=== PATIENT | female | born 1975 | race Caucasian/White ===

== ENCOUNTER → 2023-04-15 09:18 | Outpatient (CLI) | payer BC, SELFPAY ==
--- NOTE | ~2023-04-15 | XR_ITS ---
Cervical Spine: AP, lateral, open-mouth views Clinical History: Pain Findings: There is mild reversal of the normal cervical lordosis. The vertebral bodies and posterior elements appear intact. There is right-sided facet arthropathy at C3-C4. The intervertebral disc spa rigo are well maintained. Pre-vertebral soft tissues are unremarkable. Impression: Mild reversal of the normal cervical lordosis. Right-sided facet arthropathy at C3-C4. Reviewed, dictated and finalized at [facility]. Impression: Mild reversal of the normal cervical lordosis. Right-sided facet arthropathy at C3-C4.
--- NOTE | ~2023-04-15 | XR_ITS ---
Lumbosacral Spine: AP and lateral views Clinical History: Pain Findings: The normal lordotic curve is maintained. The vertebral bodies and posterior elements are i ntact. There is mild to moderate degenerative disc change at L4-L5 and L5-S1.. There is moderate face t arthropathy throughout the lumbar spine. The sacroiliac joints are normally outlined. Impression: Cphr-ky-onadufnd degenerative spondylosis, as above. Reviewed, dictated and finalized at location [facility]. Impression: [id number]-npiwprxp degenerative spondylosis, as above.
== END ==
PROVIDERS: PCP Internal Medicine; Visit Provider Nurse Practitioner Family
DX: M54.2 Cervicalgia (principal); M54.59 Other low back pain; M43.06 Spondylolysis, lumbar region; M53.82 Other specified dorsopathies, cervical region
CPT/HCPCS: 72040; 72100

== ENCOUNTER 2024-10-24 14:15 | Outpatient (CLI) | payer BC, SELFPAY ==
[2024-10-24 15:17] LABS: Influenza A QL RT-PCR Negative (Negative); Influenza B QL RT-PCR Negative (Negative); RSV RNA, RT-PCR Negative (Negative)
--- OUTSIDE RECORDS SUMMARY | 2024-10-24 16:41 | XMS_ITS | Clinical Summary ---
Author Organization [facility] Address [address] [place] [id number] Care Team Providers Care Manager Of Employee Relations Name Role Phone Neto Durant MD Unavailable Ramon Taylor MD Primary Care Provider Yefri Spence MD Unavailable [phone] Francesca Kendall Unavailable Unavailable Allergies No known active allergies Medications ALPRAZolam (XANAX) 0.5 mg tablet Take 1 tablet (0.5 mg total) by mouth 3 (three) times a day 10/12/2020 Active aspirin 81 mg enteric coated tabletIndicatio ns:cardiovascul ar disease Take 1 tablet (81 mg total) by mouth daily 30 tablet 11 12/07/2020 Active sacubitriL-vals eugenia (ENTRESTO) 24-26 mg tabletIndicatio ns:chronic heart failure Take 1 tablet by mouth 2 (two) times a day 60 tablet 01/03/2021 Active spironolactone (ALDACTONE) 25 mg tablet Take 1 tablet (25 mg total) by mouth daily 30 tablet 11 01/04/2021 Active dapagliflozin (FARXIGA) 10 mg tabletIndicatio ns:heart failure with reduced ejection fraction Take 1 tablet (10 mg total) by mouth daily 30 tablet 01/04/2021 Active carvediloL (COREG) 12.5 mg tablet Take 1 tablet (12.5 mg total) by mouth 2 (two) times a day 10/28/2023 Active clopidogreL (PLAVIX) 75 mg tablet Take 1 tablet (75 mg total) by mouth daily Active furosemide (LASIX) 40 mg tablet Take 1 tablet (40 mg total) by mouth daily as needed 12/09/2023 Active rosuvastatin (CRESTOR) 10 mg tablet Take 1 tablet (10 mg total) by mouth nightly Active Active Problems Problem Noted Date Diagnosed Date SOB (shortness of breath) 12/10/2023 Chest pain, unspecified type 03/16/2023 Chest pain 01/01/2021 [facility] (myocardial infarction) 12/04/2020 Coronary artery disease 11/26/2020 Overview (11/26/2020): Added automatically from request for surgery [id number] Mixed anxiety depressive disorder 05/19/2012 Overview (11/21/2016): Depression with anxiety History of migraine headaches 05/19/2012 Overview (11/21/2016): History of migraine headaches Patent foramen ovale 05/19/2012 Overview (11/21/2016): PFO with atrial septal aneurysm Tobacco dependence in remission 05/19/2012 Overview (11/21/2016): Tobacco abuse, in remission Abscess of vulva 03/02/2012 Surgical History Surgery Date Site/Laterality Comments HYSTERECTOMY TONSILLECTOMY NOSE SURGERY CHOLECYSTECTOMY CARDIAC CATHETERIZATION Medical History Medical History Date Comments Hx Other Medical Depression, wit h Anxiety Hx Other Medical Migraines Personal history of other sp ecified conditions History of headache - (Added by TW Conv) Gastric ulcer without hemorr jimmie or perforation Gastric ulcer - (Added by TW Conv) Personal history of other di seases of the digestive system History of esophageal reflux - (Added by TW Conv) Arrhythmia Wheezing Cervical cancer (HCC) Social History Tobacco Use Types Packs/Day Years Used Date Smoking Tobacco: Heavy Smoker Cigarettes 0 0.5 Tobacco Cessation:Ready to Q uit: No; Counseling Given: Yes Alcohol Use Standard Drinks/Week Comments Not Currently 0 (1 standard drink = 0.6 oz pur e alcohol) Social Connection and Isolat ion Panel [NHANES] Answer Date Recorded In a typical week, how many times do you talk on the phone with family, friends, or neighbors? More than three times a week 03/17/2023 How often do you get togethe r with friends or relatives? More than three times a week 03/17/2023 How often do you attend chur ch or christianity services? Never 03/17/2023 Do you belong to any clubs o r organizations such as druze groups, unions, fraternal or athletic groups, or school groups? No 03/17/2023 How often do you attend meet ings of the clubs or organizations you belong to? Never 03/17/2023 Are you , , di vorced, , never , or living with a partner? 03/17/2023 AUDIT-C Answer Date Recorded Q1: How often do you have a drink containing alc ohol? Never 12/15/2023 Average Number of Drinks Not on file 024 Frequency of Binge Drinking Not on file 11/17 Overall Financial Resource Strain (CARDIA) Answe r Date Recorded How hard is it for you to pa y for the very basics like food, housing, medical care, and heating? Not hard at all 03/17/2023 Hunger Vital Sign Answer Date Recorded Within the past 12 months, y ou worried that your food would run out before you got the money to buy more. Never true 03/17/20 23 Within the past 12 months, t he food you bought just didn't last and you didn't have money to get more. Never true 03/17/2023 PRAPARE - Transportation Answer Date Re corded In the past 12 months, has l ack of transportation kept you from medical appointments or from getting medications? No 08/2022 In the past 12 months, has l ack of transportation kept you from meetings, work, or from getting things needed for daily living? No 03/17/2023 Housing Stability Vital Sign Answer Trevon e Recorded In the last 12 months, was t here a time when you were not able to pay the mortgage or rent on time? No 03/17/2023 In the last 12 months, how many places have you lived? 1 03/17/2023 In the last 12 months, was t here a time when you did not have a steady place to sleep or slept in a detention (including now)? No 03/17/2023 Personal Safety Answer Date Recorded Have you ever been in or are you currently in a harmful physical or emotional relationship or is someone making you feel afraid or unsafe? Denies 12/15/2023 Comments No Sex and Gender Information Value Date Recorded Sex Assigned at Not on file Legal Sex Female 2:34 AM HOUSE PRINCIPAL Gender Identity Not on file Sexual Orientation Not on file Obstetrics History Last Filed Vital Signs Vital Sign Reading Time Taken Comments Blood Pressure 107/79 12/15/2023 6:35 PM CDT Pulse 85 12/15/2023 6:35 PM CDT Temperature 36.6 C (97.8 F) 12/15/2023 6:00 PM CDT Respiratory Rate 15 12/15/2023 6:35 PM CDT Oxygen Saturation 99% 12/15/2023 6:35 PM CDT Inhaled Oxygen Concentration - - Weight 93.7 kg (206 lb 8 oz) 12/15/2023 11:28 AM CDT Height 163.8 cm (5' 4.5 ) 12/15/2023 11:28 AM CD T Body Mass Index 34.9 12/15/2023 11:28 AM CDT Plan of Treatment Health Maintenance Due Date Last Done Comments Breast Cancer Screening-Mammogram 1975 Colon Cancer Screening-Colonoscopy 1975 Depression Screening 1975 Hepatitis C Screening 1975 DTaP/Tdap/Td Vaccine (1 - Tdap) 10/23/1986 Hepatitis B Screening 10/23/1993 Regular Well Visit/Exam 18-64 10/23/1993 Pneumococcal vaccine <65 (1 of 2 - PCV) 10/23/1994 Covid-19 Vaccine (3 - 2023- season) 2024, 02/22/2021 Influenza Vaccine (#1) 2024 Medical Devices Implanted Type Area Integrated Marketing Specialist Device Identifier Shelf Expiration Date Model / Serial / Lot [employer] X [id number] Resolute [place] 3mm 2.1-2.7fr 34mm 140cm Rapid Exchange Radiopaque - [id number] Implanted:Qty: 1 on 11/30/2020 by Neto Durant MD at [facility] Med[employer]onic Inc [id number] X / / Medtronic U[employer] X [id number] Resolute [place] 3.5mm 2.1-2.7fr 22mm 140cm Rapid Exchange - [id number] Implanted:Qty: 1 on 11/30/2020 by Neto Durant MD at [facility] [employer]onic Inc [id number] / / Medtronic U[employer] X [id number] Resolute [place] 3.5mm 2.1-2.7fr 12mm 140cm Rapid Exchange - [id number] Implanted:Qty: 1 on 11/30/2020 by Neto Durant MD at [facility] [employer]onic Inc [id number] X / / Medtronic U[employer] X [id number] Resolute [place] 4mm 2.1-2.7fr 15mm 140cm Rapid Exchange Radiopaque - [id number] Implanted:Qty: 1 on 12/04/2020 by Neto Druant MD at [facility] [employer] Inc [id number] X / / Insurance [employer] [facility] [employer] [place] [facility] Advance Directives For more information, please contact: [phone] * Full Code (Latest Code Status on File) Date Activated Date Inactivated Comments 03/17/2023 4:28 AM 03/18/2023 3:23 PM * Full Code Date Activated Date Inactivated Comments 01/01/2021 8:55 PM 01/03/2021 2:34 PM * Full Code Date Activated Date Inactivated Comments 12/04/2020 12:36 PM 12/06/2020 3:46 PM * Full Code Date Activated Date Inactivated Comments 12/04/2020 10:28 AM 12/04/2020 12:36 PM * Full Code Date Activated Date Inactivated Comments 11/30/2020 3:12 PM 12/01/2020 5:09 PM Care Teams Manager Of Employee Relations Relationship Specialty Start Date End Date Ramon Taylor MD [address] [facility] [address] [place] [address] PCP - General 01/01/21 Neto Durant MD [address] [place] [address] Consulting Physician Cardiovascular Disease 12/01/20 Yefri Spence MD [address] [place] [address] Consulting Physician Transplant 06/17/24 Francesca eKndall Primary Manager Terminal 06/17/24
--- OUTSIDE RECORDS SUMMARY | 2024-10-24 16:41 | XMS_ITS | Patient Health Summary ---
Author Organization [facility] Address [address] [place] [place] [address] Care Team Providers Care Knot Cutter Name Role Phone Unavailable Primary Care Provider Unavailabl e Note from [facility],non-owned Affiliates and Associated Physician Practices is amultiple site organization consisting of ambulatory clinics and hospital sitesin [place], [place], [place] and [place]. This disclosure is being madepursuant to the Care Everywhere program and may not contain all information available regarding this patient. Last updated 18.[facility] Allergies No known active allergies Social History Tobacco Use Types Packs/Day Years Used Date Smoking Tobacco: Never Assessed Sex and Gender Information Value Date Recorded Sex Assigned at Not on file Gender Identity Not on file Sexual Orientation Not on file Last Filed Vital Signs Vital Sign Reading Time Taken Comments Blood Pressure 121/87 12/05/2014 12:36 PM CDT Pulse 96 12/05/2014 12:36 PM CDT Temperature - - Respiratory Rate 17 12/05/2014 12:36 PM CDT Oxygen Saturation - - Inhaled Oxygen Concentration - - Weight 84.4 kg (186 lb) 12/05/2014 12:36 PM CDT Height 152.4 cm (5') 12/05/2014 12:36 PM CDT Body Mass Index 36.33 12/05/2014 12:36 PM CDT Procedures * SKIN TEST PPD - POINT OF CARE(Performed 01/12/2018) Performed for PPD screening test Results * SKIN TEST PPD - POINT OF CARE (01/12/2018) PPD 0 mm Other MISCELLANEOUS SAMPLE S / Unknown 01/12/2018 Swathi Basilio APRN-SUPERVISOR [facility] - POINT OF CARE ORDERABLES
--- OUTSIDE RECORDS SUMMARY | 2024-10-24 16:41 | XMS_ITS | Clinical Summary ---
Author Organization [facility] Address [address] [place] [id number] Phone Care Team Providers Care Senior Clinical Research Scientist Name Role Phone Ramon Taylor MD Primary Care Provider [phone] Allergies No known active allergies Medications clopidogreL (PLAVIX) 75 mg Tablet Take 75 mg by mouth daily. Active dapagliflozin propanediol (Farxiga) 10 mg Tablet Take 10 mg by mouth daily. Active spironolactone (ALDACTONE) 25 mg tablet Take 25 mg by mouth daily. Active carvediloL (COREG) 12.5 mg tablet Take 12.5 mg by mouth 2 times daily with meals. Active ALPRAZolam (XANAX) 0.5 mg tablet Take 0.5 mg by mouth 3 times daily as needed for Anxiety. Active sacubitriL-valsa rtan (ENTRESTO) 49-51 mg Tablet Take 1 Tablet by mouth 2 times daily. Active HYDROcodone-acet aminophen (NORCO) 5-325 mg tablet Take 1 Tablet by mouth 3 times daily. Active aspirin (ECOTRIN EC) 81 mg Tablet, Delayed Release (E.C.) Take 81 mg by mouth daily. Active rosuvastatin (CRESTOR) 20 mg tablet Take 1 Tablet (20 mg) by mouth daily. 30 Tablet 03/22/2023 Active Active Problems Problem Noted Date Diagnosed Date Elevated brain natriuretic peptide (BNP) level 0 03/21/2023 Ischemic dilated cardiomyopathy 03/20/2023 Acute on chronic HFrEF (hear t failure with reduced ejection fraction) 03/20/2023 Gastroesophageal reflux disease 03/19/2023 Chest pain 03/19/2023 [place] (acute kidney injury) 03/19/2023 Anginal equivalent 03/19/2023 DE (myocardial infarction) 12/04/2020 Arteriosclerosis of coronary artery 11/26/2020 Overview (03/19/2023): Added automatically from request for surgery [id number] Cardiomyopathy 12/29/2018 Chronic pain disorder 06/29/2018 Mixed anxiety depressive disorder 05/19/2012 Overview (03/19/2023): Depression with anxiety Social History Tobacco Use Types Packs/Day Years Used Date Smoking Tobacco: Never Tobacco Cessation:Counseling Given: Not Answered Feeling Safe Answer Date Recorded Are you in a relationship wi th someone who hurts you emotionally and/or physically? No 03/19/2023 Food Insecurity Answer Date Recorded Social/Environmental Concerns No concerns Transportation Needs Answer Date Record ed Social/Environmental Concerns No concerns Housing Stability Answer Date Recorded Social/Environmental Concerns No concerns Utility Needs Answer Date Recorded Social/Environmental Concerns No concerns Comments Unknown Sex and Gender Information Value Date Recorded Sex Assigned at Not on file Legal Sex Female 1:37 PM CDT Gender Identity Not on file Sexual Orientation Not on file Last Filed Vital Signs Vital Sign Reading Time Taken Comments Blood Pressure 129/94 03/21/2023 10:31 AM CDT Pulse 77 03/21/2023 3:56 AM CDT Temperature 36.8 C (98.2 F) 03/21/2023 10:31 AM CDT Respiratory Rate 16 03/21/2023 10:31 AM CDT Oxygen Saturation 91% 03/21/2023 3:56 AM CDT Inhaled Oxygen Concentration - - Weight 95.7 kg (211 lb) 03/20/2023 4:36 AM CDT Height 165.1 cm (5' 5 ) 03/19/2023 8:09 PM CDT Body Mass Index 35.11 03/19/2023 8:09 PM CDT Plan of Treatment Health Maintenance Due Date Last Done Comments PNEUMOCOCCAL VACCINE 0-49 YEARS (1 of 2 - PCV) 982 DTAP/TDAP/TD VACCINES (1 - Tdap) 10/23/1994 HEPATITIS B VACCINES (1 of 3 - 19+ 3-dose series) 04/1995 CERVICAL CANCER SCREENING 10/23/2005 BREAST CANCER SCREENING 2015 COLORECTAL SCREENING 10/23/2020 Colorectal Cancer Screening 10/23/2020 FIT-DNA Q 3 years 10/23/2020 FIT/FOBT Q 1 year 10/23/2020 Flex Sig/CT Colonography Q 5 years 10/23/2020 INFLUENZA VACCINE (#1) 2024 Insurance [facility] Advance Directives For more information, please contact: [phone] * Full Code (Latest Code Status on File) Date Activated Date Inactivated Comments 03/19/2023 9:24 PM 03/21/2023 5:59 PM Care Teams Senior Clinical Research Scientist Relationship Specialty Start Date End Date Ramon Taylor MD [address] [facility] [address] [place] [id number] PCP - General Internal Medicine 03/19/23
--- OUTSIDE RECORDS SUMMARY | 2024-10-24 16:41 | XMS_ITS | Referral Summary ---
Author Organization [facility] Address [address] [place] [id number] Care Team Providers Care Metal Furrer Name Role Phone Neto Durant MD Unavailable Ramon Taylor MD Primary Care Provider Yefri Spence MD Unavailable [phone] Francesca Kendall Unavailable Unavailable Allergies No known [...] (11/26/2020): Added automatically from request for surgery [id number] Mixed anxiety depressive disorder 05/19/2012 Overview (11/21/2016): Depression with anxiety History of migraine headaches 05/19/2012 Overview (11/21/2016): History of migraine headaches Patent foramen ovale 05/19/2012 Overview (11/21/2016): PFO with atrial septal aneurysm Tobacco dependence in remission 05/19/2012 Overview (11/21/2016): Tobacco abuse, in remission Abscess of vulva 03/02/2012 Social History Tobacco Use Types Packs/Day Years [...] often do you attend chur ch or taoism services? Never 03/17/2023 Do you belong to any clubs o r organizations such as synagogue groups, unions, fraternal or athletic groups, or [...] place to sleep or slept in a skilled nursing (including now)? No 03/17/2023 Personal Safety Answer Date Recorded Have you ever been in or are you currently in a harmful physical or emotional relationship or is someone making you feel afraid or unsafe? Denies 12/15/2023 Comments No Sex and Gender Information Value Date Recorded Sex Assigned at Not on file Legal Sex Female 2:34 AM COMPUTER PROGRAMMING MANAGER Gender Identity Not on file Sexual Orientation [...] 12/15/2023 11:28 AM CDT Plan of Treatment Not on file Medical Devices Implanted Type Area Diorama Model Maker Device Identifier Shelf Expiration Date Model / Serial / Lot Medtronic Usa [employer] X [id number] Resolute [employer] 3mm 2.1-2.7fr 34mm 140cm Rapid Exchange Radiopaque - [id number] Implanted:Qty: 1 on 11/30/2020 by Neto Durant MD at [facility] [employer]onic Inc [id number] X / / Med[employer]onic [employer] X [id number] Resolute [employer] 3.5mm 2.1-2.7fr 22mm 140cm Rapid Exchange - [id number] Implanted:Qty: 1 on 11/30/2020 by Neto Durant MD at [facility] [employer]onic Inc [id number] X / / Med[employer]onic [employer] X [id number] Resolute [place] 3.5mm 2.1-2.7fr 12mm 140cm Rapid Exchange - [id number] Implanted:Qty: 1 on 11/30/2020 by Neto Durant MD at [facility] Med[employer]onic Inc [id number] X / / Medtronic Usa [employer] X [id number] Resolute [employer] 4mm 2.1-2.7fr 15mm 140cm Rapid Exchange Radiopaque - [id number] Implanted:Qty: 1 on 12/04/2020 by Neto Durant MD at [facility] [employer] Inc [id number] X / / Insurance [employer] [place] [employer] [place] Advance Directives For more information, please contact: [phone] * Full Code (Latest Code Status on [...] 3:12 PM 12/01/2020 5:09 PM Care Teams Metal Furrer Relationship Specialty Start Date End Date Ramon Taylor MD [address] [facility] [address] [place] [address] PCP - General 01/01/21 Neto Durant MD [address] [place] [address] Consulting Physician Cardiovascular Disease 12/01/20 Yefri Spence MD [address] [facility] [address] [facility] [place] [address] Consulting Physician Transplant 06/17/24 Francesca Kendall Primary Aix System Administrator 06/17/24
--- OUTSIDE RECORDS SUMMARY | 2024-10-24 16:42 | XMS_ITS | CONTINUITY OF CARE DOCUMENT ---
Author Name deven carvalho Address Unknown Organization [facility] Address [address] [place] [address] Phone [phone] Care Team Providers Care Herd Tester Name Role Phone Carleen DEWEY, Neto Unavailable [phone] [facility] SPENCE MD Unavailable TASH FLYNN MD Unavailable PROBLEMS Condition Status Date Provider Notes S/P DC AICD - Biotronik ( MRI Safe) active Sarah Foss Hyperlipidemia active Umer Flores MD Edema active Karin Pily Chest pain completed - Umer Flores MD ? Cardiomyopathy completed - Umer Flores MD COPD; active Umer Flores MD has lung md Anxiety disorder, generalized active Umer Flores MD Atrial septal aneurysm completed 3 - Neto Durant MD SLEEP APNEA; active Umer Flores MD Cardiomyopathy EF 30% active Neto Dempsey PVC's active Neto Durant MD Palpitations active Neto Durant MD CHF active Neto Durant MD MURAL THROMBUS, LEFT VENTRICLE active Neto Durant MD Hypokalemia active Neto Durant MD Dizziness active Neto Durant MD CAD s/p stents to LAD active Neto Dempsey Exposure to SARS-associated coronavirus;NEG SWAB completed - Neto Durant MD IRON DEFICIENCY active Umer Flores MD Diastolic dysfunction completed - Neto Durant MD PREDIABETES; completed - Neto Durant MD Vitamin D deficiency completed - Neto Durant MD Folate-deficiency completed - Neto Durant MD Obesity completed - Neto Durant MD Chest pain, atypical completed - Neto Durant MD Headache, chronic completed - Neto Durant MD Health maintenance examination completed - Neto Durant MD B12 deficiency completed - Neto Durant MD Hypokalemia completed - Neto Durant MD Depression completed - Neto Durant MD Pneumonia completed - Neto Durant MD FAMILY HISTORY OF HEART DISEASE active Umer Flores MD FATHER HAD CABG Sinus tachycardia;nml tsh completed 09/08 - Neto Durant MD Tobacco use, quit active Umer Flores MD Dyspnea completed - Umer Flores MD ENCOUNTERS Date Type Provider Location Encounter Diag nosis - In-person encounter Office Visit Neto Durant MD [facility] - In-person encounter Office Visit Neto Durant MD [facility] - In-person encounter Office Visit Neto Durant MD [facility] - In-person encounter Office Visit Neto Durant MD [facility] MURAL THROMBUS, LEFT VENTRICLE - In-person encounter Office Visit Neto Durant MD [facility] - In-person encounter Office Visit Neto Durant MD [facility] Hypokalemia - In-person encounter Office Visit Neto Durant MD [facility] Dizziness - In-person encounter Office Visit Neto Durant MD [facility] - In-person encounter Office Visit Neto Durant MD [facility] CHF - In-person encounter Office Visit Neto Durant MD [facility] - In-person encounter Office Visit Neto Durant MD [facility] - In-person encounter Office Visit Neto Durant MD [facility] Exposure to SARS-associated coronavirus;NEG SWAB - In-person encounter Office Visit Neto Durant MD [facility] - In-person encounter Office Visit Benedicto Hill MD [facility] - In-person encounter Office Visit Neto Durant MD [facility] - In-person encounter Office Visit Neto Durant MD [facility] Palpitations - In-person encounter Office Visit Thomas Looney MD [facility] - In-person encounter Office Visit Neto Durant MD [facility] CAD s/p stents to LAD - In-person encounter Office Visit Neto Durant MD [facility] Sinus tachycardia;nml tshPneumoniaDepressionH [id number] deficiencyHealth maintenance examinationHeadache, chronicChest pain, atypicalAtrial septal aneurysmObesityFolate-d eficiencyVitamin D deficiencyPREDIABETES;D iastolic dysfunctionCardiomyopat hy EF 30%PVC's - In-person encounter Office Visit Umer Flores MD [facility] ? CardiomyopathyCOPD;SLEE P APNEA;IRON DEFICIENCY - In-person encounter Office Visit Umer Flores MD [facility] DyspneaTobacco use, quitChest painSinus tachycardia;nml tshFAMILY HISTORY OF HEART DISEASECOPD;Anxiety disorder, generalizedSLEEP APNEA; VITAL SIGNS Date Observation Value Provider Body Mass Index (Ratio) 35.82 kg/m2 Alicia Durant MD blood pressure, diastolic 76 mm[Hg] [facility], systolic 114 mm[Hg] [facility] oxygen saturation, oximetry 97 % Rae Anne pulse rate 89 /min [facility] respiratory rate E&M 14 /min [facility] weight E&M 212 [lb_av] Raeanna Anne height E&M 64.5 [in_i] [facility] blood pressure, cuff size regular [facility] Body Mass Index (Ratio) 35.35 kg/m2 Alicia Durant MD oxygen saturation, oximetry 97 % [facility] pulse rate 77 /min [facility] blood pressure, diastolic 74 mm[Hg] Amina Gomez blood pressure, systolic 107 mm[Hg] Flaca sherman Gomez respiratory rate E&M 20 /min [facility] blood pressure, cuff size regular Amina anaya Gomez weight E&M 209.2 [lb_av] Chanelle Ruiz height E&M 64.5 [in_i] [facility] Body Mass Index (Ratio) 35.32 kg/m2 Alicia Durant MD blood pressure, cuff size regular Lang harp Pérez blood pressure, diastolic 79 mm[Hg] Lang odonnellha Pérez blood pressure, systolic 103 mm[Hg] Tab kaylaha Pérez oxygen saturation, oximetry 97 % Lenore Pérez pulse rate 99 /min Lenore Pérez weight E&M 209 [lb_av] Lenore Pérez height E&M 64.5 [in_i] Lenore Pérez respiratory rate E&M 12 /min Lenore Pérez Body Mass Index (Ratio) 34.78 kg/m2 Alicia Durant MD blood pressure, cuff size regular Lang harp Pérez blood pressure, diastolic 82 mm[Hg] Lang bitha Pérez blood pressure, systolic 105 mm[Hg] Tab kaylaha Pérez oxygen saturation, oximetry 99 % Lenore Pérez respiratory rate E&M 12 /min Lenore Pérez pulse rate 99 /min Lenore Pérez weight E&M 205.8 [lb_av] Lenore Pérez height E&M 64.5 [in_i] Lenore Pérez Body Mass Index (Ratio) 34.81 kg/m2 Alicia Durant MD respiratory rate E&M 20 /min Tello Leggett pulse rate 114 /min Tello Leggett oxygen saturation, oximetry 97 % Tello Leggett blood pressure, cuff size regular Do artemio Leggett blood pressure, diastolic 80 mm[Hg] Do artemio Oleksandr blood pressure, systolic 97 mm[Hg] Anselmo Leggett weight E&M 206 [lb_av] Tello Luisant height E&M 64.5 [in_i] Tello Luisant Body Mass Index (Ratio) 35.99 kg/m2 Alicia Durant MD respiratory rate E&M 16 /min Mis iller blood pressure, cuff size regular [facility] blood pressure, diastolic 79 mm[Hg] [facility] blood pressure, systolic 101 mm[Hg] [facility] oxygen saturation, oximetry 99 % [facility] pulse rate 91 /min [facility] weight E&M 213 [lb_av] [facility] height E&M 64.5 [in_i] [facility] blood pressure, cuff size regular [facility] blood pressure, diastolic 50 mm[Hg] [facility] blood pressure, systolic 101 mm[Hg] [facility] respiratory rate E&M 15 /min [facility] iller pulse rate 49 /min [facility] oxygen saturation, oximetry 96 % [facility] height E&M 64.5 [in_i] [facility] Body Mass Index (Ratio) 36.33 kg/m2 Alicia Durant MD blood pressure, diastolic 52 mm[Hg] Nanci Alvarado blood pressure, systolic 114 mm[Hg] Saji Alvarado oxygen saturation, oximetry 99 % Ladonna Alvarado pulse rate 90 /min Ladonna dempsey weight E&M 215 [lb_av] Ladonna dempsey respiratory rate E&M 16 /min Edda Alvarado blood pressure, cuff size large Nanci asher Christiano height E&M 64.5 [in_i] Ladonna dempsey Body Mass Index (Ratio) 35.65 kg/m2 Alicia Durant MD blood pressure, cuff size large [facility] height E&M 64.5 [in_i] Swathimarizol nicholson oxygen saturation, oximetry 97 % Neto Durant MD pulse rate 98 /min Neto Durant MD blood pressure, diastolic 86 mm[Hg] Us samir Durant MD blood pressure, systolic 116 mm[Hg] Brook Durant MD weight E&M 211 [lb_av] Neto Durant MD Body Mass Index (Ratio) 35.15 kg/m2 Alicia Durant MD blood pressure, diastolic 90 mm[Hg] St amber Kramer blood pressure, systolic 123 mm[Hg] Jc Kramer oxygen saturation, oximetry 97 % Rowena Kramer pulse rate 81 /min Rowena Kramer respiratory rate E&M 16 /min Rowena ziegler weight E&M 208 [lb_av] Rowena Kramer height E&M 64.5 [in_i] Rowena Kramer Body Mass Index (Ratio) 34.17 kg/m2 Alicia Durant MD blood pressure, diastolic 83 mm[Hg] St acshailesh Kramer blood pressure, systolic 121 mm[Hg] Jc Kramer pulse rate 71 /min Rowena Kramer oxygen saturation, oximetry 99 % Rowena Kramer respiratory rate E&M 18 /min Rowena ziegler weight E&M 202.2 [lb_av] Rowena Kramer height E&M 64.5 [in_i] Rowena Williams Body Mass Index (Ratio) 33.46 kg/m2 Alicia Durant MD blood pressure, diastolic 75 mm[Hg] Us samir Durant MD blood pressure, systolic 107 mm[Hg] Marianne a Decker oxygen saturation, oximetry 98 % Ciara Decker respiratory rate E&M 20 /min Ciara Si ms pulse rate 105 /min Ciara Decker weight E&M 198 [lb_av] Ciara Decker blood pressure, cuff size regular Sa ra Decker height E&M 64.5 [in_i] Ciara Decker Body Mass Index (Ratio) 32.78 kg/m2 Alicia Durant MD blood pressure, cuff size regular Ca therine Robert blood pressure, diastolic 82 mm[Hg] Ca therine Robert blood pressure, systolic 113 mm[Hg] Cat herine [place] oxygen saturation, oximetry 90 % Mounika [place] respiratory rate E&M 14 /min Catheri ne [place] pulse rate 99 /min Mounika Robert weight E&M 194 [lb_av] Mounika Robert height E&M 64.5 [in_i] Mounika Robert Body Mass Index (Ratio) 32.95 kg/m2 Paulino Hill MD blood pressure, cuff size regular Cy umer [place] blood pressure, diastolic 70 mm[Hg] Cy umer [place] blood pressure, systolic 108 mm[Hg] Nohelia [place] oxygen saturation, oximetry 97 % Ashely [place] respiratory rate E&M 16 /min Ashely [place]ellin pulse rate 92 /min Ashelycarmela blanco weight E&M 195 [lb_av] Ashely Desirae blanco height E&M 64.5 [in_i] Ashely Desirae blanco Body Mass Index (Ratio) 33.12 kg/m2 Alicia Durant MD blood pressure, cuff size regular Cy umer [place] blood pressure, diastolic 80 mm[Hg] Cy nthia [place] blood pressure, systolic 122 mm[Hg] Nohelia carmela Vignesh pulse rate 105 /min Ashely Merrill bella oxygen saturation, oximetry 98 % Ashely [place] respiratory rate E&M 16 /min Ashely [place] weight E&M 196 [lb_av] Ashely blanco height E&M 64.5 [in_i] Ashely blanco Body Mass Index (Ratio) 33.12 kg/m2 Alicia Durant MD pulse rate 81 /min Ashely Merrill bella oxygen saturation, oximetry 98 % Ashely [place] respiratory rate E&M 16 /min Ashely [place] blood pressure, cuff size regular Cy umer [place] blood pressure, diastolic 80 mm[Hg] Cy umer [place] blood pressure, systolic 130 mm[Hg] Nohelia carmela [place] weight E&M 196 [lb_av] Ashely blanco height E&M 64.5 [in_i] Ashely Desirae blanco Body Mass Index (Ratio) 32.95 kg/m2 Clinton Looney MD blood pressure, cuff size regular Cy umer Vignesh blood pressure, diastolic 80 mm[Hg] Cy ntmarniea [place] blood pressure, systolic 116 mm[Hg] Nohelia carmela [place] oxygen saturation, oximetry 98 % Ashely [place] respiratory rate E&M 16 /min Ashely [place] pulse rate 96 /min Ashely blanco weight E&M 195 [lb_av] Ashely blanco height E&M 64.5 [in_i] Ashely blanco Body Mass Index (Ratio) 32.61 kg/m2 Alicia Durant MD blood pressure, cuff size large Ke rri Gruenenfelder blood pressure, diastolic 90 mm[Hg] Ke rri Gruenenfelder blood pressure, systolic 140 mm[Hg] Ker ri Gruenenfelder oxygen saturation, oximetry 99 % Renetta Stefanieeldstephanie respiratory rate E&M 16 /min Renetta G debbieenenfelder pulse rate 112 /min Renetta Gruenenfe lder weight E&M 193 [lb_av] Renetta Gruenenfe lder height E&M 64.5 [in_i] Renetta Gruenenfe er Body Mass Index (Ratio) 33.80 kg/m2 Alicia Durant MD blood pressure, cuff size large Ke rri Gruenenfelder blood pressure, diastolic 80 mm[Hg] Ke rri Gruenenfelder blood pressure, systolic 152 mm[Hg] Ker ri Gruenenfelder oxygen saturation, oximetry 98 % Renetta Gruenenfelder respiratory rate E&M 16 /min Renetta G ruenenfelder pulse rate 107 /min Renetta Gruenenfe lder weight E&M 200 [lb_av] Renetta Gruenenfe lder height E&M 64.5 [in_i] Renetta Anne diallo Body Mass Index (Ratio) 33.29 kg/m2 Estefania Flores MD blood pressure, diastolic 81 mm[Hg] Wilver Saini blood pressure, systolic 142 mm[Hg] Denise Saini oxygen saturation, oximetry 96 % Victorino Saini respiratory rate E&M 18 /min Melanie Saini pulse rate 106 /min Victorino dominguez weight E&M 197 [lb_av] Victorino dominguez height E&M 64.5 [in_i] Victorino Frey ángelharvey Body Mass Index (Ratio) 33.73 kg/m2 Estefania Flores MD blood pressure, cuff size regular Te selena Banegas blood pressure, diastolic 80 mm[Hg] Te selena Banegas blood pressure, systolic 122 mm[Hg] Ten tonierobel SeguraMakenzie blood pressure, resting No Estefany Segurahley oxygen saturation, oximetry 96 % Chinyere Banegas respiratory rate E&M 18 /min Chinyere Segurahley pulse rate 117 /min Chinyere Banegas height E&M 64.5 [in_i] Chinyere Banegas weight E&M 199.6 [lb_av] Chinyere Zambrano y ALLERGIES Allergy Name Onset Date Reaction Criticality Status JARDIANCE High Criticality active RESULTS Date Observation Value Provider Reference Range Interpretation Location prothrombin time (patient) 11.4 s [facility] 9.1-12.0 international normalized ratio (INR) 1.1 [facility] 0.9-1.2 lipoprotein, beta, serum, point, quantitative, calculated 66 mg/dL [facility] 0-99 HDL cholesterol, serum 44 mg/dL [facility] >39 triglyceride, serum, random 102 mg/dL [facility] 0-149 cholesterol, serum 129 mg/dL [facility] [phone]/05/ 04 calcium, serum 8.8 mg/dL [facility] 8.7-10.2 carbon dioxide, venous blood 24 mmol/L [facility] 20-29 chloride, serum 103 mmol/L [facility] 96-106 potassium, serum 4.1 mmol/L [facility] 3.5-5.2 sodium, serum 140 mmol/L [facility] [phone]/05/ 04 urea nitrogen/creatinine ratio, serum 10 [facility] 9-23 creatinine, serum 0.79 mg/dL [facility] 0.57-1.00 urea nitrogen, blood 8 mg/dL [facility] 6-24 blood glucose, random 112 mg/dL [facility] 70-99 High basophil count, absolute 0.0 x10E3/uL [facility] 0.0-0.2 Eosinophil Absolute Count 0.1 X10E3/UL [facility] 0.0-0.4 monocyte count, blood, automated 0.4 X10E3/UL [facility] 0.1-0.9 lymphocyte count, blood, automated 2.8 X10E3/UL [facility] 0.7-3.1 Absolute Neutrophils 4.0 X10E3/UL [facility] 1.4-7.0 basophils as percent of blood leukocytes 1 % [facility] Not Estab. eosinophils as percent of blood leukocytes 2 % [facility] Not Estab. monocytes as percent of blood leukocytes 5 % [facility] Not Estab. lymphocytes as percent of blood leukocytes 38 % [facility] Not Estab. neutrophils as percent of blood leukocytes 54 % [facility] Not Estab. platelet count 191 X10E3/UL [facility] [phone]/05/ 04 red blood cell distribution width 11.8 % [facility] 11.7-15.4 mean corpuscular hemoglobin concentration, RBC 34.0 G/DL [facility] 31.5-35.7 mean corpuscular hemoglobin, RBC 32.7 pg [facility] 26.6-33.0 mean corpuscular volume, RBC 96 fL [facility] 79-97 hematocrit, blood 39.1 % [facility] 34.0-46.6 hemoglobin, blood 13.3 g/dL [facility] 11.1-15.9 erythrocyte (RBC) count 4.07 X10E6/UL [facility] 3.77-5.28 leukocyte count, blood 7.4 X10E3/UL [facility] 3.4-10.8 bacteria, urine microscopy None seen [facility] None seen/Few hyaline casts, urine None seen [facility] None seen epithelial cells, urine 0-10 [facility] 0 - 10 RBC, Urine 0-2 /hpf [facility] 0 - 2 WBC urine on microscopy None seen /hpf [facility] 0 - 5 urinalysis, microscopic examination See below: [facility] nitrate, urine Negative [facility] Negative urobilinogen, urine, semiquantitative (dipstick) 0.2 [facility] 0.2-1.0 bilirubin, urine Negative [facility] Negative hemoglobin, urine, by dipstick Trace [facility] Negative Abnormal ketones, urine, by test strip Negative [facility] Negative glucose, urine Negative [facility] Negative protein, urine, semiquantitative (dipstick) Negative [facility] Negative/Tra ce leukocyte esterase, urine, by dipstick Trace [facility] Negative Abnormal appearance, urine Clear [facility] Clear urine color Yellow [facility] Yellow pH, urine, semiquantitative 7.5 [facility] 5.0-7.5 specific gravity, body fluid 1.011 [facility] 1.005-1.030 alanine aminotransferase (SGPT), serum 10 1/L [facility] 0-32 aspartate aminotransferase (SGOT), serum 13 1/L [facility] 0-40 alkaline phosphatase, serum 112 1/L [facility] 48-121 bilirubin, serum, total 0.2 mg/dL [facility] 0.0-1.2 albumin/globulin ratio, serum 1.9 [facility] 1.2-2.2 globulin, serum 2.3 [facility] 1.5-4.5 albumin, serum 4.3 g/dL [facility] 3.8-4.8 protein, total, serum 6.6 g/dL [facility] 6.0-8.5 calcium, serum 9.6 mg/dL [facility] 8.7-10.2 carbon dioxide, venous blood 26 mmol/L [facility] 20-29 chloride, serum 104 mmol/L [facility] 96-106 potassium, serum 4.7 mmol/L [facility] 3.5-5.2 sodium, serum 141 mmol/L [facility] 255-860 2180/08/ 19 urea nitrogen/creatinine ratio, serum 16 [facility] 9-23 eGFR if 122 mL/min/{1.7 3_m2} [facility] >59 eGFR if not 106 mL/min/{1.7 3_m2} [facility] >59 creatinine, serum 0.68 mg/dL [facility] 0.57-1.00 urea nitrogen, blood 11 mg/dL [facility] 6-24 blood glucose, random 93 mg/dL [facility] 65-99 activated partial thromboplastin time (aPTT) 26 s [facility] 24-33 prothrombin time (patient) 9.8 s [facility] 9.1-12.0 international normalized ratio (INR) 0.9 [facility] 0.9-1.2 basophil count, absolute 0.1 x10E3/uL [facility] 0.0-0.2 Eosinophil Absolute Count 0.2 X10E3/UL [facility] 0.0-0.4 monocyte count, blood, automated 0.5 X10E3/UL [facility] 0.1-0.9 lymphocyte count, blood, automated 3.1 X10E3/UL [facility] 0.7-3.1 Absolute Neutrophils 4.2 X10E3/UL [facility] 1.4-7.0 basophils as percent of blood leukocytes 1 % [facility] Not Estab. eosinophils as percent of blood leukocytes 3 % [facility] Not Estab. monocytes as percent of blood leukocytes 7 % [facility] Not Estab. lymphocytes as percent of blood leukocytes 39 % [facility] Not Estab. neutrophils as percent of blood leukocytes 50 % [facility] Not Estab. platelet count 262 X10E3/UL [facility] [phone]/08/ 19 red blood cell distribution width 12.4 % [facility] 11.7-15.4 mean corpuscular hemoglobin concentration, RBC 32.8 G/DL [facility] 31.5-35.7 mean corpuscular hemoglobin, RBC 32.3 pg [facility] 26.6-33.0 mean corpuscular volume, RBC 98 fL [facility] 79-97 High hematocrit, blood 39.9 % [facility] 34.0-46.6 hemoglobin, blood 13.1 g/dL [facility] 11.1-15.9 erythrocyte (RBC) count 4.06 X10E6/UL [facility] 3.77-5.28 leukocyte count, blood 8.1 X10E3/UL [facility] 3.4-10.8 prothrombin time (patient) 9.8 s [facility] 9.1-12.0 international normalized ratio (INR) 0.9 [facility] 0.9-1.2 lipoprotein, beta, serum, point, quantitative, calculated 147 mg/dL [facility] 0-99 High HDL cholesterol, serum 48 mg/dL [facility] >39 triglyceride, serum, random 158 mg/dL [facility] 0-149 High cholesterol, serum 223 mg/dL [facility] 100-199 High calcium, serum 9.5 mg/dL [facility] 8.7-10.2 carbon dioxide, venous blood 26 mmol/L [facility] 20-29 chloride, serum 104 mmol/L [facility] 96-106 potassium, serum 4.6 mmol/L [facility] 3.5-5.2 sodium, serum 145 mmol/L [facility] 134-144 High urea nitrogen/creatinine ratio, serum 14 [facility] 9-23 eGFR if 96 mL/min/{1.7 3_m2} [facility] >59 eGFR if not 83 mL/min/{1.7 3_m2} [facility] >59 creatinine, serum 0.85 mg/dL [facility] 0.57-1.00 urea nitrogen, blood 12 mg/dL [facility] 6-24 blood glucose, random 108 mg/dL [facility] 65-99 High basophil count, absolute 0.1 x10E3/uL [facility] 0.0-0.2 Eosinophil Absolute Count 0.3 X10E3/UL [facility] 0.0-0.4 monocyte count, blood, automated 0.6 X10E3/UL [facility] 0.1-0.9 lymphocyte count, blood, automated 3.6 X10E3/UL [facility] 0.7-3.1 High Absolute Neutrophils 4.6 X10E3/UL [facility] 1.4-7.0 basophils as percent of blood leukocytes 1 % [facility] Not Estab. eosinophils as percent of blood leukocytes 3 % [facility] Not Estab. monocytes as percent of blood leukocytes 7 % [facility] Not Estab. lymphocytes as percent of blood leukocytes 39 % [facility] Not Estab. neutrophils as percent of blood leukocytes 49 % [facility] Not Estab. platelet count 293 X10E3/UL [facility] [phone]/04/ 02 red blood cell distribution width 12.3 % [facility] 11.7-15.4 mean corpuscular hemoglobin concentration, RBC 34.1 G/DL [facility] 31.5-35.7 mean corpuscular hemoglobin, RBC 32.1 pg [facility] 26.6-33.0 mean corpuscular volume, RBC 94 fL [facility] 79-97 hematocrit, blood 39.9 % [facility] 34.0-46.6 hemoglobin, blood 13.6 g/dL [facility] 11.1-15.9 erythrocyte (RBC) count 4.24 X10E6/UL [facility] 3.77-5.28 leukocyte count, blood 9.2 X10E3/UL [facility] 3.4-10.8 folate, serum 2.7 NG/MLM [facility] 4.4 - 31.0 Low vitamin b12, serum 285.5 pg/mL [facility] 211.0 - 946.0 free thyroxine index 5.8 ??g/dL [facility] 4.4 - 11.4 triiodothyronine uptake 1.2 TBI [facility] 0.8 - 1.3 thyroxine, serum, total 6.9 ??G/DL [facility] 4.5 - 11.7 thyroid stimulating hormone, serum 0.214 ??IU/ML [facility] 0.270 - 4.200 Low pro brain natriuretic peptide 25.6 pg/mL [facility] 0.0 - 125.0 very low density lipoproteins 39.6 mg/dL [facility] 5.0 - 40.0 LDL/HDL (low-density lipoprotein/high-den sity lipoprotein) ratio 2.5 RATIO [facility] - lipoprotein, beta, serum, point, quantitative, calculated 143.4 (?) [facility] 0.0 - 100.0 High HDL cholesterol, serum 57.0 mg/dL [facility] 45.0 - 65.0 cholesterol, serum 240.0 mg/dL [facility] 0.0 - 200.0 High triglyceride, serum, fasting 198.0 mg/dL [facility] 0.0 - 150.0 High ferritin, serum 215.8 ng/mL [facility] 13.0 - 150.0 High anion gap, serum 14.2 [facility] - albumin/globulin ratio, serum 2.0 g/dL [facility] 1.1 - 2.5 globulin, serum 2.4 [facility] 2.3 - 3.8 urea nitrogen/creatinine ratio, serum 15.0 [facility] - Estimated Glomerular Filtration Rate (calc) 84.4 (?) [facility] 59.0 - chloride, serum 100.8 mmol/L [facility] 98.0 - 107.0 potassium, serum 4.1 mmol/L [facility] 3.5 - 5.1 sodium, serum 143.0 mmol/L [facility] 136.0 - 145.0 creatinine, serum 0.8 mg/dL [facility] 0.5 - 1.0 carbon dioxide, venous blood 28.0 mmol/L [facility] 22.0 - 29.0 albumin, serum 4.8 g/dL [facility] 3.5 - 5.2 calcium, serum 9.6 mg/dL [facility] 8.6 - 10.2 aspartate aminotransferase (SGOT), serum 17.0 1/L [facility] 0.0 - 32.0 alkaline phosphatase, serum 103.0 1/L [facility] 40.0 - 130.0 alanine aminotransferase (SGPT), serum 15.0 1/L [facility] 0.0 - 33.0 protein, total, serum 7.2 g/dL [facility] 6.6 - 8.7 bilirubin, serum, total 0.3 mg/dL [facility] 0.0 - 1.2 urea nitrogen, blood 12.0 mg/dL [facility] 6.0 - 20.0 blood glucose, random 110.0 mg/dL [facility] 74.0 - 99.0 High C-reactive protein, serum 0.1 mg/dL [facility] 0.0 - 0.5 iron, serum 58.0 ug/dL [facility] 25.0 - 156.0 iron saturation percent, serum 12.6 % [facility] 20.0 - 50.0 Low iron binding capacity, total 459.2 ug/dL [facility] 250.0 - 450.0 High trichomonas vaginalis, urine None seen [facility] urine crystals, microscopic None seen [facility] casts, urine, microscopic None seen [facility] mucus on urinalysis None seen [facility] Not Estab. bacteria, urine microscopy Few [facility] None seen / Few epithelial cells, urine 1 - 10 / lpf [facility] 0 - 10 /lpf (non renal) RBC urine by microscopy 0 - 3 /hpf [facility] 0 - 3 /hpf WBC urine on microscopy 11 - 20 /hpf [facility] 0 - 5 /hpf Nitrite Urine Negative [facility] Negative urobilinogen, urine 0.2 E.U./dL mg/dl [facility] 0.2 - 1.0 specific gravity, urine 1.010 [facility] 1.001 - 1.035 KETONES, URINE Negative [facility] Negative bilirubin, urine Negative [facility] Negative Glucose Urine Negative [facility] Negative clarity, urine, point Clear [facility] Yellow urine color Yellow [facility] yellow to sathya hemoglobin A1C, blood, as % of total hemoglobin 5.8 % [facility] 4.0 - 5.6 High HISTORY OF MEDICATION USE Medication Status Instructions Dates Provider Indications Com ments spironolactone 25 mg tablet active TAKE 1 TABLET DAILY Neto Durant MD rosuvastatin 10 mg tablet active TAKE 1 TABLET BY MOUTH EVERY DAY AT NIGHT Leah Garrido Eliquis 5 mg tablet completed TAKE 1 TABLET BY MOUTH TWICE A DAY - Leah Garrido clopidogrel 75 mg tablet active 1 tab daily Tello Leggett carvedilol 12.5 mg tablet active TAKE 1 TABLET BY MOUTH TWICE A DAY [facility] potassium chloride 20 mEq tablet extended release active Take 1 tablet by mouth twice a day for 1 week Neto Durant MD Aldactone 25 mg tablet completed TAKE 1 TABLET BY MOUTH EVERY DAY - Tello Leggett Farxiga 10 mg tablet active TAKE 1 TABLET BY MOUTH EVERY DAY Cristal Gray rosuvastatin 10 mg tablet completed Take 1 tablet by mouth every night - Leah Hema Farxiga 10 mg tablet completed Take 1 tablet by mouth once a day - [facility] Aldactone 25 mg tablet completed Take 1 tablet by mouth once a day - Ladonna Alvarado Plavix 75 mg tablet completed TAKE ONE TABLET BY MOUTH ONCE DAILY. - Ladonna Alvarado Jardiance 10 mg tablet completed Take 1 tablet by mouth once a day - Neto Durant MD carvedilol 6.25 mg tablet completed TAKE ONE TABLET BY MOUTH TWICE A DAY - Sagar Mcgrath Toprol XL 50 mg tablet extended release 24 hr completed Take 1 tablet by mouth once a day - Neto Durant MD furosemide 40 mg tablet active TAKE 1 TABLET BY MOUTH EVERY DAY Neto Durant MD Medrol (Ralf) 4 mg tablets,dose pack completed 1 tablet once a day Take per package instructions - Ladonna Alvarado Coreg 6.25 mg tablet completed Take 1 tablet by mouth twice a day - Neto Durant MD Entresto 24-26 mg tablet active TAKE 1 TABLET BY MOUTH TWICE A DAY Cristal Gray tramadol 50 mg tablet completed Take 1 tablet by mouth every six hours as needed for pain - Ladonna Alvarado cephalexin 250 mg capsule completed Take 1 capsule by mouth three times a day - Benedicto Hill MD Brilinta 90 mg tablet completed Take 1 tablet by mouth twice a day - Luly SCHILLINGP Entresto 49-51 mg tablet completed 1 tablet by mouth twice a day - Gale Smith NP Lasix 40 mg tablet completed 1 tablet by mouth once a day - Mounika Jones atorvastatin 80 mg tablet completed Take 1 tablet once a day - Neto Durant MD Farxiga 10 mg tablet completed Take 1 tablet once a day - Ashely Medellin metoprolol succinate 100 mg tablet extended release 24 hr completed 1 tablet once a day - Neto Durant MD Increased from metoprolol 25 mg colchicine 0.6 mg tablet completed Take 1 tablet once a day - Ashely Medellin COREG 6.25 MG ORAL TABLET completed ONE TAB. TWICE DAILY - Ashely Medellin ENTRESTO 24-26 MG ORAL TABLET completed one tablet by mouth twice daily - Gale Smith NP ASPIRIN 81 81 MG TBEC active 1 tablet by mouth once a day Renetta Clemente Plavix 75 mg tablet completed 1 tablet once a day - Neto Durant MD Replaced from brlinta LASIX 80 MG ORAL TABLET completed one tab by mouth daily - Ashely Medellin LOSARTAN POTASSIUM 25 MG ORAL TABLET completed Take one tablet daily - Renetta Clemente ALDACTONE 25 MG ORAL TABLET completed ONE TAB. DAILY - Renetta Clemente COREG 6.25 MG ORAL TABLET completed ONE TAB. TWICE DAILY - Renetta Clemente MULTIVITAMINS ORAL CAPSULE completed ONE TAB. DAILY - Renetta Clemente VITAMIN B-12 1000 MCG ORAL TABLET completed One tablet daily - Renetta Clemente FOLIC ACID 1 MG ORAL TABLET completed one tab daily - Renetta Clemente CARDIZEM CD 240 MG ORAL CAPSULE EXTENDED RELEASE 24 HOUR completed one daily - Renetta Clemente LIPITOR 20 MG ORAL TABLET completed ONE TAB. DAILY - Renetta Clemente let her know chol is high FOLTX 1.13-25-2 MG ORAL TABLET completed one a day - Og Gan RN VITAMIN D3 40627 UNIT ORAL CAPSULE completed one a week - Renetta Clemente KLOR-CON M10 10 MEQ ORAL TABLET EXTENDED RELEASE completed 4 TAB. DAILY - Renetta Clemente ALBUTEROL SULFATE NEBULIZATION SOLUTION completed - Renetta Clemente DULERA 100-5 MCG/ACT INHALATION AEROSOL completed - Renetta Clemente alprazolam 0.5 mg tablet active Take 1 three times a day Renetta Clemente LASIX 20 MG ORAL TABLET completed one a day - Renetta Clemente hydrocodone-acet aminophen 7.5-325 mg tablet completed Take 1 four times a day - Tello Leggett SOCIAL HISTORY Date Observation Value Provider drug use no Neto Durant MD alcohol use no Neto Durant MD passive cigarette sm tiffanie exposure no Neto Durant MD smoking, year quit 2015 Neto kaur MD number of years as a smoker 20 a Neto Durant MD smoking history, tot al pack/day 1 pack per week Neto Durant MD cigarette use yes Neto Dempsey smoking status Former smoker Neto Durant MD drug use no Chanelle Gomez alcohol use no Chanelle Gomez passive cigarette sm tiffanie exposure no Chanelle Gomez smoking, year quit 2015 Chanelle jones number of years as a smoker 20 a Chanelle Gomez smoking history, tot al pack/day 1 pack per week Chanelle Gomez cigarette use yes Chanelle Gomez smoking status Former smoker Chanelle Jason drug use no Neto Durant MD alcohol use no Neto Durant MD passive cigarette sm tiffanie exposure no Neto Durant MD smoking, year quit 2015 Neto kaur MD number of years as a smoker 20 a Neto Durant MD smoking history, tot al pack/day 1 pack per week Neto Durant MD cigarette use yes Neto Dempsey smoking status Former smoker Neto Durant MD drug use no Neto Durant MD alcohol use no Neto Durant MD passive cigarette sm tiffanie exposure no Neto Durant MD smoking, year quit 2015 Neto kaur MD number of years as a smoker 20 a Neto Durant MD smoking history, tot al pack/day 1 pack per week Neto Durant MD cigarette use yes Neto Dempsey smoking status Former smoker Neto Durant MD drug use no Mis Pérez alcohol use no Mis Pérez passive cigarette sm tiffanie exposure no Mis Pérez smoking, year quit 2016 [facility] ler number of years as a smoker 20 a Mis Pérez smoking history, tot al pack/day 1 pack per week Mis Pérez cigarette use yes Mis Pérez smoking status Former smoker Mis Pérez drug use no Mis Pérze alcohol use no Mis Pérez passive cigarette sm tiffanie exposure no Mis Pérez smoking, year quit 2015 Mis Mil ler number of years as a smoker 20 a Mis Pérez smoking history, tot al pack/day 1 pack per week Mis Pérez cigarette use yes Mis Pérez smoking status Former smoker Mis Pérez social history E&M Marital Statu s: Celena ramires: 1 O ccupation: business development coordinator Smoking History: Delphine choudhury is a former smoker. Neto Durant MD social history reviewed E&M revi ewed - no changes required Neto Durant MD passive cigarette sm tiffanie exposure no Ladonna Juneand smoking, year quit 2015 Ladonna Alvarado number of years as a smoker 20 a Ladonna Alvarado smoking history, tot al pack/day 1 pack per week Ladonna Alvarado cigarette use yes Ladonna Juan Carlos howell smoking status Former smoker Neto Durant MD social history E&M Marital Statu s: Celena ramires: 1 O ccupation: business development coordinator Smoking History: Delphine choudhury currently smokes every day. Delphine choudhury has been counseled to quit. Neto Durant MD smoking status Current every da y smoker Neto Durant MD passive cigarette sm tiffanie exposure no Swathi Jaramillo smoking/tobacco cess ation, patient education and counseling yes Swathi Jaramillo smoking, year quit 2015 Swathi Jaramillo number of years as a smoker 20 a Swathi Jaramillo smoking history, tot al pack/day 1 pack per week Swathi Jaramillo cigarette use yes Swathi lugo social history reviewed E&M revi ewed - no changes required Neto Durant MD drug use no Luly Ventimig flor [employer] E[employer]IST alcohol use no Luly Ventimig flor [employer] ECONOMIST passive cigarette sm tiffanie exposure no Rowena Kramer smoking/tobacco cess ation, patient education and counseling yes Rowena Kramer smoking, year quit 2015 Rowena Malik is number of years as a smoker 20 a Rowena Kramer smoking history, tot al pack/day 1 pack per week Rowena Kramer cigarette use yes Rowena Kramer smoking status Current every da y smoker Rowena Kramer social history E&M Marital Statu s: Celena ramires: 1 O ccupation: business development coordinator Smoking History: P atient currently smokes every day. P atient has been counseled to quit. Neto Durant MD social history reviewed E&M ondina dozier - no changes required Neto Durant MD passive cigarette sm tiffanie exposure no Rowena Kramer smoking/tobacco cess ation, patient education and counseling yes Rowena Kramer smoking, year quit 2015 Rowena Malik is number of years as a smoker 20 a Rowena Kramer smoking history, tot al pack/day 1 pack per week Rowena Kramer cigarette use yes Rowena Kramer smoking status Current every da y smoker Rowena Williams social history E&M Marital Statu s: Celena ramires: 1 O ccupation: business development coordinator Smoking History: P atient currently smokes every day. P atient has been counseled to quit. Neto Durant MD passive cigarette sm tiffanie exposure no Neto Durant MD smoking/tobacco cess ation, patient education and counseling yes Neto Durant MD smoking, year quit 2015 Neto kaur MD number of years as a smoker 20 a Neto Durant MD smoking history, tot al pack/day 1 pack per week Neto Durant MD cigarette use yes Neto Dempsey smoking status Current every da y smoker Neto Durant MD social history reviewed E&M revi ewed - no changes required Neto Durant MD social history E&M Marital Statu s: Celena ramires: 1 O ccupation: business development coordinator Smoking History: P atient currently smokes every day. P atient has been counseled to quit. Neto Durant MD social history reviewed E&M revi ewed - no changes required Neto Durant MD passive cigarette sm tiffanie exposure no Mounika Robert smoking/tobacco cess ation, patient education and counseling yes Mounika Robert smoking, year quit 2015 Mounika Grafton number of years as a smoker 20 a Mounika Grafton smoking history, tot al pack/day 1 pack per week Mounika Grafton cigarette use yes Mounika Robert smoking status Current every da y smoker Mounika Grafton passive cigarette sm tiffanie exposure no Benedicto Hill MD social history E&M Marital Statu s: Celena ramires: 1 O ccupation: business development coordinator Smoking History: P atient currently smokes every day. P atient has been counseled to quit. Benedicto Hill MD social history reviewed E&M revi ewed - no changes required Benedicto Hill MD smoking/tobacco cess ation, patient education and counseling yes Ashely Vignesh smoking, year quit 2016 Ashely laboy number of years as a smoker 20 a Ashely Vignesh smoking history, tot al pack/day 1 pack per week Ashely Medellin cigarette use yes Ashely troncoso smoking status Current every da y smoker Ashely Vignesh social history reviewed E&M revi ewed - no changes required Neto Durant MD social history E&M S moking History: P atient currently smokes every day. P atient has been counseled to quit. Neto Durant MD smoking/tobacco cess ation, patient education and counseling yes Ashely Medellin smoking, year quit 2015 Ashely Celena laboy number of years as a smoker 20 a Ashely Medellin smoking history, tot al pack/day 1 pack per week Ashely Medellin cigarette use yes Ashely troncoso smoking status Current every da y smoker Ashely Vignesh smoking status Current every da y smoker Neto Durant MD social history reviewed E&M revi ewed - no changes required Neto Durant MD social history E&M S moking History: P atkaye currently smokes every day. P atient has been counseled to quit. Neto Durant MD smoking/tobacco cess ation, patient education and counseling yes Ashely Vignesh smoking, year quit 2015 Ashely laboy number of years as a smoker 20 a Ashely Medellin smoking history, tot al pack/day 1 pack per week Ashely Medellin cigarette use yes Ashely troncoso social history E&M S moking History: P atkaye currently smokes every day. P atient has been counseled to quit. Gale Smith NP smoking/tobacco cess ation, patient education and counseling yes aGle Smith NP social history reviewed E&M revi ewed - no changes required Gale Smith NP smoking, year quit 2015 Ashely laboy number of years as a smoker 20 a Ashely Medellin smoking history, tot al pack/day 1 pack per week Ashely Vignesh cigarette use yes Ashely troncoso smoking status Current every da y smoker Ashely Vignesh alcohol use no Neto Durant MD social history E&M Smoking Histo ry: Delphine choudhury currently smokes every day. Neto Durant MD social history reviewed E&M revi ewed - no changes required Neto Durant MD number of grandchildren Neto Durant MD U veronique Durant MD alcohol use no Neto Durant MD social history E&M S moking History: Delphine choudhury currently smokes every day. Neto Durant MD social history reviewed E&M revi ewed - no changes required Neto Durant MD number of years as a smoker 20 a Renetta Bryn smoking, year quit 2015 Renetta arana smoking history, tot al pack/day 1 pack per week Renetta Bryn cigarette use yes Renetta Stefanie doran smoking status Current every da y smoker Renetta Bryn social history E&M S moking History: Delphine choudhury is a former smoker. Umer Flores MD social history reviewed E&M revi ewed - no changes required Umer Flores MD smoking, year quit 2015 Victorino Saini smoking history, tot al pack/day 0.5 Victorino Saini cigarette use yes Victorino hololway smoking status Former smoker Victorino Alatorre quit smoking, stage quit Umer thorne MD social history E&M S moking History: Delphine choudhury is a former smoker. Umer Flores MD social history reviewed E&M revi ewed - no changes required Umer Flores MD number of grandchildren Umer Banegas smoking, year quit 2015 Chinyere garcia smoking history, tot al pack/day 0.5 Chinyere Banegas cigarette use yes Chinyere cash smoking status Former smoker Chinyere caruso FUNCTIONAL STATUS Date Observation Value Provider HRA, CV Assess/Plan, Angina (inactive) Management Plan continue current therapy Neto Durant MD HRA, CV Assess/Plan, Angina (inactive) Management Plan continue current therapy Neto Durant MD HRA, CV Assess/Plan, Angina (inactive) Management Plan continue current therapy Neto Durant MD HRA, CV Assess/Plan, Angina (inactive) Management Plan continue current therapy Neto Durant MD HRA, CV Assess/Plan, Angina (inactive) Management Plan continue current therapy Neto Durant MD HRA, CV Assess/Plan, Angina (inactive) Management Plan continue current therapy Neto Durant MD HRA, CV Assess/Plan, Angina (inactive) Management Plan continue current therapy Neto Durant MD HRA, CV Assess/Plan, Angina (inactive) Management Plan continue current therapy Luly Ventimiglia [employer] E[employer]OMIST HRA, CV Assess/Plan, Angina (inactive) Management Plan continue current therapy Neto Durant MD HRA, CV Assess/Plan, Angina (inactive) Management Plan continue current therapy Neto Durant MD HRA, CV Assess/Plan, Angina (inactive) Management Plan continue current therapy Neto Durant MD HRA, CV Assess/Plan, Angina (inactive) Management Plan continue current therapy Beendicto Hill MD HRA, CV Assess/Plan, Angina (inactive) Management Plan continue current therapy Neto Durant MD HRA, CV Assess/Plan, Angina (inactive) Management Plan continue current therapy Neto Durant MD HRA, CV Assess/Plan, Angina (inactive) Management Plan continue current therapy Gale Smith NP HRA, CV Assess/Plan, Angina (inactive) Management Plan continue current therapy Neto Durant MD FAMILY HISTORY Family Member Condition Paternal Grandfather Family History of C ongestive Heart Failure: Father Family History of Co ngestive Heart Failure: Father Family History of Hy perlipidemia: Mother Family History of Di abetes: INSURANCE PROVIDERS Payer name Policy type / Coverage type [place] [employer] [id number] ADVANCE DIRECTIVES Name Date DISCUSSED - NO DECISION MADE TREATMENT PLAN Date Name Performer [id number],C,repeat home s leep study Neto Durant MD [id number],C,w ill increase coreg. 12.5 bid will do blood work to make sure kidney function is okay Neto Durant MD [id number],C,T his is systolic and she was not able to tolerate the jardiance because of itching, so we will try samples of farxiga. She may need some more lasix temporarily. Neto Durant MD [id number],S, H er updated medication list for this problem includes: Atorvastatin 80 Mg Tablet (Atorvastatin) ..... Take 1 tablet once a day Neto Durant MD [id number],S,S table. Continue medical therapy. H er updated medication list for this problem includes: Plavix 75 Mg Tablet (Clopidogrel) ..... Take one tablet by mouth once daily. Carvedilol 6.25 Mg Tablet (Carvedilol) Neto Durant MD [id number],C, H er updated medication list for this problem includes: Atorvastatin 80 Mg Tablet (Atorvastatin) ..... Take 1 tablet once a day Luly Gusmanmiglnancy [employer] ECONOMIST [id number],C,N o angina. SOB most likely d/t CMP/CHF. Will stop brilinta and transition to plavix T he following medications were removed from the medication list: Brilinta 90 Mg Tablet (Ticagrelor) ..... Take 1 tablet by mouth twice a day Her updated medication list for this problem includes: Carvedilol 6.25 Mg Tablet (Carvedilol) Brilinta 90 Mg Tablet (Ticagrelor) ..... Take 1 tablet by mouth twice a day Luly Foy [facility] [id number],C,W ith reports of some SOB and pain left mid back/lungs. She did have repeat echo and labs. Her pBNP was elevated 1070 on labs. She remains on entresto and BB. Will begin Jardiance and aldactone. Will do f/u BMP to check K after aldactone in 2 weeks or sooner if needed. T he following medications were removed from the medication list: Brilinta 90 Mg Tablet (Ticagrelor) ..... Take 1 tablet by mouth twice a day Her updated medication list for this problem includes: Carvedilol 6.25 Mg Tablet (Carvedilol) Furosemide 40 Mg Tablet (Furosemide) ..... Take 1 tablet by mouth every day Entresto 49-51 Mg Tablet (Sacubitril-valsartan) ..... Take 1 tablet by mouth twice a day Brilinta 90 Mg Tablet (Ticagrelor) ..... Take 1 tablet by mouth twice a day Lulygeoffrey Porterdelianancy [facility] [id number],S,I schemic. Will check a BMP and BNP. We may need to add a MRA, and increase the carvedilol. she still is fairly tachycardic Neto Durant MD [id number],S,J ust continue aspirin, brilinta and atorvastatin Neto Durant MD [id number],S, Neto Durant MD [id number],C,I schemic. Will check a BMP and BNP. We may need to add a MRA, and increase the carvedilol. she still is fairly tachycardic Neto Durant MD [id number],C,J ust continue aspirin, brilinta and atorvastatin Neto Durant MD [id number],S, M ild on 2017 study. Will repeat her study and see if it's bad enough to recommend a titration study. Neto Durant MD [id number],S, C ontinues on brilinta and aspirin. Neto Durant MD [id number],S, A ppears stable. Feels better overall. Exertional tolerance is improving. Neto Durant MD [id number],S, H er updated medication list for this problem includes: Atorvastatin 80 Mg Tablet (Atorvastatin) ..... Take 1 tablet once a day Neto Durant MD [id number],S,Will restart coreg at 6.25mg Neto Durant MD [id number],S, H er updated medication list for this problem includes: Atorvastatin 80 Mg Tablet (Atorvastatin) ..... Take 1 tablet once a day Neto Durant MD [id number],S, Benedicto nicholson MD [id number],S, Benedicto nicholson MD [id number],S, Benedicto nicholson MD [id number],S, Benedicto nicholson MD [id number],S, Benedicto nicholson MD [id number],S, Neto Durant MD [id number],S, n ot on CPAP Neto Durant MD [id number],S, Neto Durant MD [id number],S,s table s tents are patent Neto Durant MD [id number],S,E F today on echocardiogram is still 30%. I will set her up for a dual chamber ICD. She doesn't have LBBB. In addition, will increase metoprolol to 100mg daily. Neto Durant MD [id number],S,o n statin H er updated medication list for this problem includes: Atorvastatin 80 Mg Tablet (Atorvastatin) ..... Take 1 tablet once a day Neto Durant MD [id number],S, Neto Durant MD [id number],S,C HOL: 223 (11/16/2020) HDL: 48 (11/16/2020) H er updated medication list for this problem includes: Atorvastatin Calcium 80 Mg Oral Tablet (Atorvastatin calcium) ..... Take 1 tab daily Neto Durant MD [id number],S,more prevalen t Neto Durant MD [id number],S, Neto Durant MD [id number],C,S OB with exertion, most likely due to brilinta S topped brilinta and started plavix. Neto Durant MD Cardiology: S tarted CPAP therapy Neto Durant MD Cardiology:Stable. C ontinue medical therapy. H er updated medication list for this problem includes: Clopidogrel 75 Mg Tablet (Clopidogrel) ..... 1 tab daily Carvedilol 12.5 Mg Tablet (Carvedilol) ..... Take 1 tablet by mouth twice a day Neto Durant MD Cardiology: H er updated medication list for this problem includes: Rosuvastatin 10 Mg Tablet (Rosuvastatin) ..... Take 1 tablet by mouth every day at night Neto Durant MD Cardiology:continue gdmt E F is 25% T his visit has been a part of the consistent, comprehensive, and ongoing management of the chronic medical condition(s) listed above for the patient. Neto Durant MD Cardiology: H er updated medication list for this problem includes: Rosuvastatin 10 Mg Tablet (Rosuvastatin) ..... Take 1 tablet by mouth every day at night T his visit has been a part of the consistent, comprehensive, and ongoing management of the chronic medical condition(s) listed above for the patient. Neto Durant MD Cardiology:Check an echo with contrast to r/o thrombuis in the LV P ending the results of this echo she may qualify to be taken off eliquis Neto Durant MD Cardiology:h/o N ormalized on her most up to date labs A dd aldactone Neto Durant MD Cardiology Neto Durant MD Cardiology:This visi t has been a part of the consistent, comprehensive, and ongoing management of the chronic medical condition(s) listed above for the patient. Neto Durant MD Cardiology:EF is 25% A dd aldactone to optimize medical therapy T his visit has been a part of the consistent, comprehensive, and ongoing management of the chronic medical condition(s) listed above for the patient. Neto Durant MD Cardiology:cheryl Dempsey Cardiology: S tarted CPAP therapy Neto Durant MD Cardiology:Resolved on BMP 024 Neto Durant MD Cardiology:cheryl Dempsey Cardiology: H er updated medication list for this problem includes: Rosuvastatin 10 Mg Tablet (Rosuvastatin) ..... Take 1 tablet by mouth every night Neto Durant MD Cardiology:Stable. C ontinue medical therapy. H er updated medication list for this problem includes: Clopidogrel 75 Mg Tablet (Clopidogrel) ..... 1 tab daily Carvedilol 12.5 Mg Tablet (Carvedilol) ..... Take 1 tablet by mouth twice a day Neto Durant MD Cardiology:Has not b een able to see Dr. Spence yet due to insurance concerns. s he is on GDMT R epeat echo T his visit has been a part of the consistent, comprehensive, and ongoing management of the chronic medical condition(s) listed above for the patient. Her updated medication list for this problem includes: Clopidogrel 75 Mg Tablet (Clopidogrel) ..... 1 tab daily Furosemide 40 Mg Tablet (Furosemide) ..... Take 1 tablet by mouth every day Carvedilol 12.5 Mg Tablet (Carvedilol) ..... Take 1 tablet by mouth twice a day Neto Durant MD Cardiology:continue elirex Durant MD Cardiology Neto Durant MD Cardiology:Started eliquis Neto Durant MD Cardiology:will refe r to Dr Spence to see if there is some other therapy to improve her symptoms Neto Durant MD Cardiology:Started CPAP therapy Neto Durant MD Cardiology:Ankle swe lling has worsened Neto Durant MD Cardiology:The patie nt is on a statin H er updated medication list for this problem includes: Rosuvastatin 10 Mg Tablet (Rosuvastatin) ..... Take 1 tablet by mouth every night Neto Durant MD Cardiology: E F 30%, on GDMT Neto Durant MD Cardiology: s table, no exertional CP Neto Durant MD Cardiology:Appears t o have decompensated, prior LVEF is 30.00%, has been on GDMT A rrange for R and L heart cath, HR elevated at 114 and BP 97/80 in the clinic today. R efer to HF specialist pending the results of her cath U gabino to start verquvo given her SBP <100 L ikely decreased cardiac output, Check echocardiagram to quantify LVEF The risks and benefits of the procedure, including but not limited the risk of heart attack, , stroke, bleeding, kidney failure, and loss of limb as well as the alternative of continued medical therapy, stress testing or bypass surgery were discussed with the patient and any present family members and the patient wishes to proceed with cardiac cath and stenting. The patient and family had opportunity to discuss this with us. Written material including informed consent was given out. Neto Durant MD Cardiology:last K 2. 9, check BMP b ased on next labs I will continue aldactone and K or just aldactone Neto Durant MD Cardiology:Continue farxiga. Brook Durant MD Cardiology:EF 30%, on GDMT Neto Durant MD Cardiology:The patie nt is on a statin T he following medications were removed from the medication list: Atorvastatin 80 Mg Tablet (Atorvastatin) ..... Take 1 tablet once a day Her updated medication list for this problem includes: Rosuvastatin 10 Mg Tablet (Rosuvastatin) ..... Take 1 tablet by mouth every night Neto Durant MD Cardiology:The patie nt should utilize CPAP at a pressure of 7cm during all sleep periods. w eight loss Neto Durant MD Cardiology:WIll decr ease coreg to 6.25mg BID as she is becoming hypotensive Neto Durant MD Cardiology:had titra tion study in 06/08, will send orders to initiate CPAP Neto uDrant MD Cardiology:stable, no CP Neto bains MD Cardiology:could be due to hypotension, notes pressures in the 70s-80s systolic W ill change doses of entresto and coreg, will have her hold lasix and take as needed Neto Durant MD Cardiology:repeat home sleep vic dy Neto Durant MD Cardiology:will incr ease coreg. 12.5 bid will do blood work to make sure kidney function is okay Neto Durant MD Cardiology:This is s ystolic and she was not able to tolerate the jardiance because of itching, so we will try samples of farxiga. She may need some more lasix temporarily. Neto Durant MD Cardiology: H er updated medication list for this problem includes: Atorvastatin 80 Mg Tablet (Atorvastatin) ..... Take 1 tablet once a day Neto Durant MD Cardiology:Stable. C ontinue medical therapy. H er updated medication list for this problem includes: Plavix 75 Mg Tablet (Clopidogrel) ..... Take one tablet by mouth once daily. Carvedilol 6.25 Mg Tablet (Carvedilol) Neto Durant MD Cardiology: H er updated medication list for this problem includes: Atorvastatin 80 Mg Tablet (Atorvastatin) ..... Take 1 tablet once a day Luly Foy [facility] Cardiology:No angina . SOB most likely d/t CMP/CHF. Will stop brilinta and transition to plavix T he following medications were removed from the medication list: Brilinta 90 Mg Tablet (Ticagrelor) ..... Take 1 tablet by mouth twice a day Her updated medication list for this problem includes: Carvedilol 6.25 Mg Tablet (Carvedilol) Brilinta 90 Mg Tablet (Ticagrelor) ..... Take 1 tablet by mouth twice a day Luly Foy [facility] Cardiology:With repo rts of some SOB and pain left mid back/lungs. She did have repeat echo and labs. Her pBNP was elevated 1070 on labs. She remains on entresto and BB. Will begin Jardiance and aldactone. Will do f/u BMP to check K after aldactone in 2 weeks or sooner if needed. T he following medications were removed from the medication list: Brilinta 90 Mg Tablet (Ticagrelor) ..... Take 1 tablet by mouth twice a day Her updated medication list for this problem includes: Carvedilol 6.25 Mg Tablet (Carvedilol) Furosemide 40 Mg Tablet (Furosemide) ..... Take 1 tablet by mouth every day Entresto 49-51 Mg Tablet (Sacubitril-valsartan) ..... Take 1 tablet by mouth twice a day Brilinta 90 Mg Tablet (Ticagrelor) ..... Take 1 tablet by mouth twice a day Luly Foy [employer] Cardiology:Ischemic. Will check a BMP and BNP. We may need to add a MRA, and increase the carvedilol. she still is fairly tachycardic Neto Durant MD Cardiology:Just cont inue aspirin, brilinta and atorvastatin Neto Durant MD Cardiology Neto Durant MD Cardiology:Ischemic. Will check a BMP and BNP. We may need to add a MRA, and increase the carvedilol. she still is fairly tachycardic Neto Durant MD Cardiology:Just cont inue aspirin, brilinta and atorvastatin Neto Durant MD Cardiology: M ild on 2017 study. Will repeat her study and see if it's bad enough to recommend a titration study. Neto Durant MD Cardiology: C ontinues on brilinta and aspirin. Neto Durant MD Cardiology: A ppears stable. Feels better overall. Exertional tolerance is improving. Neto Durant MD Cardiology: H er updated medication list for this problem includes: Atorvastatin 80 Mg Tablet (Atorvastatin) ..... Take 1 tablet once a day Neto Durant MD Cardiology:Will restart coreg at 6.25mg Neto Durant MD Cardiology: H er updated medication list for this problem includes: Atorvastatin 80 Mg Tablet (Atorvastatin) ..... Take 1 tablet once a day Neto Durant MD Cardiology hospital follow up Ra joey Hill MD Cardiology hospital follow up Ra joey Hill MD Cardiology hospital follow up Ra joey Hill MD Cardiology hospital follow up Ra joey Hill MD Cardiology hospital follow up Ra joey Hill MD Cardiology follow up Neto vaughan MD Cardiology follow up : n ot on CPAP Neto Durant MD Cardiology follow up Neto vaughan MD Cardiology follow up :stable s tents are patent Neto Durant MD Cardiology follow up :EF today on echocardiogram is still 30%. I will set her up for a dual chamber ICD. She doesn't have LBBB. In addition, will increase metoprolol to 100mg daily. Neto Durant MD Cardiology follow up :on statin H er updated medication list for this problem includes: Atorvastatin 80 Mg Tablet (Atorvastatin) ..... Take 1 tablet once a day Neto Durant MD Cardiology follow up Neto vaughan MD Cardiology follow up :CHOL: 223 (11/16/2020) HDL: 48 (11/16/2020) H er updated medication list for this problem includes: Atorvastatin Calcium 80 Mg Oral Tablet (Atorvastatin calcium) ..... Take 1 tab daily Neto Durant MD Cardiology follow up :more preva lent Neto Durant MD Cardiology follow up Neto vaughan MD Cardiology follow up :SOB with exertion, most likely due to brilinta S topped brilinta and started plavix. Neto Durant MD Cardiology follow up : n ot on CPAP w ill recheck home sleep study Thomas Looney MD Cardiology follow up Thomas newby MD Cardiology follow up : O rders: [phone] HIGH 40-54min (CPT-19262) S leep Study Home (CPT-90118) Thomas Looney MD Cardiology follow up Thomas newby MD Cardiology follow up : Celena valente atorvastatin. Her updated medication list for this problem includes: Atorvastatin Calcium 80 Mg Oral Tablet (Atorvastatin calcium) ..... Take 1 tab daily Gale Smith NP Cardiology follow up : n ot on CPAP w ill recheck home sleep study Gale Smith NP Cardiology follow up : R efill lasix. Mild ankle swelling. Gale Smith NP Cardiology follow up : Delphine choudhury has a LifeVest on due to low EF and frequent PVCs. Plan to repeat echo in 3 months. O n entresto, BB. Increase entresto to 49-51mg BID, metoprolol to full 25mg tablet daily. Continue farxiga. The following medications were removed from the medication list: Coreg 6.25 Mg Oral Tablet (Carvedilol) ..... One tab. twice daily Her updated medication list for this problem includes: Entresto 49-51 Mg Oral Tablet (Sacubitril-valsartan) ..... One tab by mouth twice daily Lasix 40 Mg Oral Tablet (Furosemide) ..... One tab by mouth daily Metoprolol Succinate Er 25 Mg Oral Tablet Extended Release 24 Hour (Metoprolol succinate) ..... One tab daily Aspirin 81 81 Mg Oral Tablet Delayed Release (Aspirin) ..... One tab by mouth daily Brilinta 90 Mg Oral Tablet (Ticagrelor) ..... One tab. twice daily Gale Smith NP Cardiology follow up : S Was in the hospital for several days after developing in stent thrombosis of LAD stent. Had another stent placed and CP resolved. Delphine esparza hadrecurrent CP and underwent another cath on 01/02/21 showing widely patent LAD stents. Only occasional stabs of CP since then. C ontinue DAPT with brilinta/bASA. W ill increase entresto and metoprolol. Pt. to monitor BP at home. The following medications were removed from the medication list: Coreg 6.25 Mg Oral Tablet (Carvedilol) ..... One tab. twice daily Her updated medication list for this problem includes: Metoprolol Succinate Er 25 Mg Oral Tablet Extended Release 24 Hour (Metoprolol succinate) ..... One tab daily Aspirin 81 81 Mg Oral Tablet Delayed Release (Aspirin) ..... One tab by mouth daily Brilinta 90 Mg Oral Tablet (Ticagrelor) ..... One tab. twice daily Gale Smith NP Cardiology Follow up :not on CPAP Neto Durant MD Cardiology Follow up Neto vaughan MD Cardiology Follow up :Patient cannot tolerate cholesterol medication Neto Durant MD Cardiology Follow up :No swelling at present. Continue lasix Neto Durant MD Cardiology Follow up :Patient has a LifeVest on due to low EF and frequent PVCs. Placed on Entresto today 24-26mg one tablet twice a day. We plan to check her kidney function in 2 weeks and see her again in a month The following medications were removed from the medication list: Losartan Potassium 25 Mg Oral Tablet (Losartan potassium) ..... Take one tablet daily Aldactone 25 Mg Oral Tablet (Spironolactone) ..... One tab. daily Coreg 6.25 Mg Oral Tablet (Carvedilol) ..... One tab. twice daily Lasix 20 Mg Oral Tablet (Furosemide) ..... One a day Her updated medication list for this problem includes: Coreg 6.25 Mg Oral Tablet (Carvedilol) ..... One tab. twice daily Entresto 24-26 Mg Oral Tablet (Sacubitril-valsartan) ..... One tablet by mouth twice daily Aspirin 81 81 Mg Oral Tablet Delayed Release (Aspirin) ..... One tab by mouth daily Brilinta 90 Mg Oral Tablet (Ticagrelor) ..... One tab. twice daily Lasix 80 Mg Oral Tablet (Furosemide) ..... One tab by mouth daily Neto Durant MD Cardiology Follow up :Stable. Was in the hospital for several days after developing in stent thrombosis of LAD stent. Had another stent placed and CP resolved. C ontinue Coreg and DAPT. Stop metoprolol, Lisinopril. Patient cannot tolerate cholesterol medication Neto Durant MD Cardiology New Patie nt :Not on CPAP Neto Durant MD Cardiology New Patie nt :Obtain 48 hour holter. Echo today revealed frequent PVCs. Neto Durant MD Cardiology New Patie nt :Echo today revealed LVEF 30-35%. Started on Coreg 6.25mg, Aldactone 25mg, Losartan 25mg. W e will schedule her for a cardiac cath to evaluate her LV function and rule out ischemic cardiomyopathy. Neto Durant MD Cardiology:needs titraon Umer Flores MD Cardiology:with lvh Umer spear MD Cardiology:neg nuc a nd trops no venous insuff, nml pro, neg urine N EG BELLY CT, NEG VD FOR DVT, NEG RENAL US , NEEG EEG Umer Flores MD Cardiology:will try cardiezem Nicholas chelsea Flores MD Cardiology:fu xray neg Umer acevedo MD Cardiology:cadena neg complete, mayb e due to tino?? Umer Flores MD Cardiology Umer Flores MD Cardiology:CHOL: 240 .0 (09/09/2016) HDL: 57.0 (09/09/2016) T.0 (09/09/2016), nml crp Her updated medication list for this problem includes: Lipitor 20 Mg Tabs (Atorvastatin calcium) ..... One tab. daily Umer Flores MD Cardiology:mod to sever, neg cxr Umer Flores MD Cardiology Umer Flores MD Cardiology:WILL INDIA Flores MD Cardiology:NEG NUC IN 12 AND 17 Umer Flores MD Cardiology:MULT SX WILL INDIA Rosario MD Cardiology:NEG MRI AND MRA AND C T Umer Flores MD Cardiology:NEG BELLY CT, NEG VD FOR DVT, NEG RENAL US , NEEG EEG Umer Flores MD Cardiology:LOW IN 09, FOLATA AND IRON OK THEN Umer Flores MD Cardiology:DUE TO LASIX WILL RX Umer Flores MD Cardiology:DD WAS NORMAL, NEED F U CXR Umer Flores MD Cardiology:NUC SHOWS LOW EF, NO ISCHEMIS WILL ECHO , TROPS WERE NEG, NEG NUC 12 Umer Flores MD Date Name PROBNP, N TERMINAL BASIC METABOLIC PANE L W/EGFR Complete Echo Complete Echo PROTHROMBIN TIME WIT H INR LIPID PANEL CBC (INCLUDES DIFF/P LT) BASIC METABOLIC PANE L W/EGFR Complete Echo BASIC METABOLIC PANE L W/EGFR PROBNP, N TERMINAL BASIC METABOLIC PANE L W/EGFR LIPID PANEL Sleep Study Home CRP, high sensitivit y Microalb/Creatinine Urine, Random HEMOGLOBIN A1c PROBNP, N TERMINAL BASIC METABOLIC PANE L W/EGFR Lipoprotein (a) PROBNP, N TERMINAL BASIC METABOLIC PANE L W/EGFR BASIC METABOLIC PANE L W/EGFR Complete Echo PROBNP, N TERMINAL BASIC METABOLIC PANE L W/EGFR Sleep Study Home X-Ray, Chest - Routi ne X-Ray, Chest - Routi ne Complete Echo Sleep Study Home COMPREHENSIVE METABO LIC PANEL, W/EGFR PROTHROMBIN TIME WIT H INR LIPID PANEL CBC (INCLUDES DIFF/P LT) BASIC METABOLIC PANE L W/EGFR Cardiac Cath - L/R- [facility] Holter Monitor 48 hr Holter Monitor [address], Coronary Calcium Score VITAMIN B12 CBC (INCLUDES DIFF/P LT) Sleep Study Titratio n COMPREHENSIVE METABO LIC PANEL, W/EGFR LIPID PANEL PROBNP, N TERMINAL VITAMIN D, 25-HYDROX Y, LC/MS/MS HEMOGLOBIN A1c FOLATE, SERUM IRON AND TOTAL IRON BINDING CAPACITY FERRITIN Venous Doppler Bilat eral LE - Standing URINALYSIS, COMPLETE W/REFLEX TO CULTURE Sleep Study Home FOLATE, SERUM VITAMIN D, 25-HYDROX Y, LC/MS/MS HEMOGLOBIN A1c IRON AND TOTAL IRON BINDING CAPACITY VITAMIN B12 FERRITIN THYROID PANEL WITH T SH, 3RD GENERATION C-REACTIVE PROTEIN LIPID PANEL COMPREHENSIVE METABO LIC PANEL W/EGFR PROBNP, N TERMINAL X-Ray, Chest, PA & L ateral DLCO - 92585 FRC - 24172 FVC - 66585 Holter Monitor 24 Hr Complete Echo HISTORY OF PROCEDURES Procedure Date Procedure Name Provider Procedure Notes S tatus Complex e/m visit add on Neto Durant MD completed Complex e/m visit add on Neto Durant MD completed Complex e/m visit add on Neto Durant MD completed EKG Neto Durant MD completed Device Check - Life vest Neto Durant MD completed Holter, 24 or 48 Neto Durant MD com pleted EKG Neto Durant MD completed SNOMED-CT: [id number] Current Medications Documented Umer Flores MD completed FVC - 80914 Umer Flores MD complet ed FRC - 50059 Umer Flores MD complet ed DLCO - 69098 Umer Flores MD comple rose ZIO Holter Hookup Umer Flores MD c ompleted Home Sleep Study Umer Flores MD co mpleted EKG Umer Flores MD complete d SNOMED-CT: [id number] Current Medications Documented Umer Flores MD completed Stress EKG Damián Cantu MD complet ed Regadenoson, 4 units Damián Cantu MD completed Cardiolite, 2 units Damián Cantu MD completed SPECT Images Damián Cantu MD compl eted
--- OUTSIDE RECORDS SUMMARY | 2024-10-24 16:42 | XMS_ITS | Referral Summary ---
Author Organization [facility] Health Address [address] [place] [address] Care Team Providers Care Commodity Lead Name Role Phone Unavailable Primary Care Provider Unavailabl e Source Comments [facility],non-owned Affiliates and Associated Physician Practices is amultiple site organization consisting of ambulatory clinics and hospital sitesin [place], [place], [place] and [place]. This disclosure is being madepursuant to the Care Everywhere program and may not contain all information available regarding this patient. Last updated 18.[facility] [employer] Allergies No known active allergies Social History [...] Mass Index 36.33 12/05/2014 12:36 PM CDT Plan of Treatment Not on file Administered Medications
--- OUTSIDE RECORDS SUMMARY | 2024-10-24 16:42 | XMS_ITS | Clinical Summary ---
Author Organization [facility] Health Address [address] [place] [address] Care Team Providers Care Financial Services Internship Name Role Phone Unavailable Primary Care Provider Unavailabl e Source Comments [facility],non-owned Affiliates and Associated Physician Practices is amultiple site organization consisting of ambulatory clinics and hospital sitesin [place], [place], [place] and [place]. This disclosure is being madepursuant to the Care Everywhere program and may not contain all information available regarding this patient. Last updated 18.[facility] [employer] Allergies No known active allergies Social History [...] 12/05/2014 12:36 PM CDT Plan of Treatment Health Maintenance Due Date Last Done Comments COLOGUARD (AGES 45-75) - COL ON CA SCREENING 1975 COLON MONITORING 1975 COLONOSCOPY - COLON CA SCREENING 1975 CT COLONOGRAPHY - COLON CA SCREENING 1975 Colorectal Cancer Screening 1975 FIT - COLON CA SCREENING 1975 FLEX SIG - COLON CA SCREENING 1975 LIPID TESTING 1975 MAMMOGRAM 1975 PAP SMEAR 1975 HIV SCREENING 10/23/1990 HEPATITIS C SCREENING 10/19/1993 DTAP/TDAP/TD VACCINES (1 - Tdap) 10/23/1994 HEPATITIS B VACCINE (1 of 3 - 19+ 3-dose series) 10/23/1994 COVID-19 VACCINE (1 - 2023-2 5 season) 2024 INFLUENZA VACCINE (#1) 2024 DEPRESSION SCREENING 08/17/2024 ZOSTER VACCINE (1 of 2) 10/23/2025 HIB VACCINE Aged Out No longer eligi ble based on patient's age to complete this topic HPV VACCINE Aged Out No longer eligi ble based on patient's age to complete this topic MENINGOCOCCAL (Group B) VACCINE Aged Out No longer eligible based on patient's age to complete this topic MENINGOCOCCAL VACCINE Aged Out No elizabeth kirsten eligible based on patient's age to complete this topic PNEUMOCOCCAL VACCINE Aged Out No long er eligible based on patient's age to complete this topic
--- OUTSIDE RECORDS SUMMARY | 2024-10-24 16:42 | XMS_ITS | Data Portability ---
Author Organization [facility] Address [address] [place] [phone] Assessment No assessment recorded. Plan of Treatment Reminders Order Date Submit Date Provider Last Modified By Organization Details Last Modified Time Details Appointments None recorded. Lab None recorded. Referral None recorded. Procedures None recorded. Surgeries None recorded. Imaging MAMMO, diagnostic , digital, bilateral 2015 016 [facility] ([facility]), [address] [place], [address], 6 11:02:19 U/S breast left 2015 016 [facility] ([facility]), [address] [place], [address], 6 09:58:39 Medication Orders vitamin E (dl, acetate) 180 mg (400 unit) capsule 2015 016 [email or web address] 9 [facility] [address] [place] [address], [address], 6 17:00:54 Evening Kilmichael 500 mg capsule 2015 016 [email or web address] 9 [facility], [address] [place] [address], [address], 6 17:00:54 Patient TargetsNo targets recorded. Patient Instructions Encounter Date Encounter Id Patient Instructions Last Modified By Organization Details Last Modified Time 08/23/2015 [id number] fibrocystic breast changes: care instructions [email or web address] Not available 08/23/2015 17:00:54 Reason for Referral None Reported. Problems Name Problem SNOMED Code Status Onset Date Resolution Date Notes Provider Name and Address Organization Details Recorded Time Unilateral mastalgia Active CESAR Cruz, [facility] 6 17:00:54 Fibrocystic disease of breast 44152838 Active Sabiha Brown CESAR virgil, [facility] 6 17:00:54 Problem Notes None recorded. Procedures Surgical History Date Name Laterality Status Provider Name and Address Organization Details Recorded Time 08/17/19 10 Date of Last Pap Smear completed Lauren Navarrete MA [facility] 08/23/2015 16:23:46 08/17/19 10 Cholecystectomy completed Lauren Navarrete MA [facility] 08/23/2015 16:13:02 08/17/19 09 Orthopedic Surgery completed Lauren Navarrete MA [facility] 08/23/2015 16:13:02 08/17/19 07 Hysterectomy completed Lauren Navarrete MA [facility] 08/23/2015 16:13:02 08/17/19 05 Caesarean Section completed Lauren Navarrete MA [facility] 08/23/2015 16:13:02 Orthopedic Surgery completed Lauren ulloa MA [facility] 08/23/2015 16:13:02 Endometrial Biopsy completed Lauren ulloa MA [facility] 08/23/2015 16:13:02 Orthopedic Surgery completed Lauren ulloa MA [facility] 08/23/2015 16:13:02 Tonsillectomy completed Lauren Navarrete MA [facility] 08/23/2015 16:13:02 Laparoscopy completed Lauren Navarrete MA [facility] 08/23/2015 16:13:02 Imaging Results None recorded. Procedure Notes None recorded. Medical Equipment None Reported. Allergies No known drug allergies Medications Name Sig Start Date Stop Date Status Note LastModified by Organization Details LastModified Time Evening Kilmichael 500 mg capsule Take 1 capsule every day by oral route at bedtime. 016 active Not Available Not Available Not Avai lable vitamin E (dl, acetate) 180 mg (400 unit) capsule Take 1 capsule twice a day by oral route. 016 active Not Available Not Available Not Avai lable Vitals Date Recorded Body weight Body mass index (BMI) Body height Provider Name and Address Organization Details Last Updated DateTime 08/23/2015 58138.77748 g 29.7 kg/m2 163.83 cm Lauren Navarrete MA [facility] 08/23/2015 16:09:13 Social History Question Answer Notes LastModified by Organizat ion Details LastModified Time Tobacco Smoking Status Current Every Day Smoker Lauren Navarrete MA null, [facility] 08/23/2015 16:23:46 Do You Have An Advance Directive? No Information not available 08/23/2015 What Is Your Level Of Alcohol Consumption? None Information not available 08/23/2015 Is Blood Transfusion Acceptable In An Emergency? Yes Information not available 08/23/2015 What Is Your Level Of Caffeine Consumption? Heavy Information not available 08/23/2015 How Much Tobacco Do You Chew? None Information not available 08/23/2015 Are You Currently Employed? Yes Information not available 08/23/2015 What Type Of Diet Are You Following? REGULAR Information not available 08/23/2015 Which Illicit Or Recreational Drugs Have You Used? None Information not available 08/23/2015 Education 2 Year College Informatio n not available 08/23/2015 What Is Your Occupation? [employer] Information not available 08/23/2015 Live Alone Or With Others? With Others Information not available 08/23/2015 How Many Children Do You Have? 1 Information not available 08/23/2015 Performs Monthly Self-breast Exam? Yes Information no t available 08/23/2015 Do You Use Protection During Sex? No Information not available 08/23/2015 What Is Your Relationship Status? Information not available 08/23/2015 Seat Belts Used Routinely Yes Information not available 08/23/2015 Are You Sexually Active? Yes Information not available 08/23/2015 At What Age Did You Start Smoking Tobacco? 25 Information not available 08/23/2015 How Much Tobacco Do You Smoke? 0.5 PPD Information not available 08/23/2015 General Stress Level High Information not available 08/23/2015 Do You Use Sunscreen Routinely? Yes Information not available 08/23/2015 How Many Years Have You Smoked Tobacco? 24 Information not available 08/23/2015 Sex: Unknown Functional Status Question Answer Note LastModified by Organizat ion Details LastModified Time What is your exercise level? Occasional Information not available 08/23/2015 Mental Status None recorded. Family History Relationship Description Onset Age of this Age Resolved Age Notes LastModified by Organization Details LastModified Time Mother Hypercholest erolemia mwasserman Not available 08/23 16:45:36 Mother Hypertensive disorder [email or web address] Not available 08/23 16:45:36 Mother Kidney disease [email or web address] Not available 08/23 16:45:36 Mother Migraine mwasserman Not availab le 08/23/2015 16:45:36 Mother Diabetes mellitus mwasserman Not available 08/23 16:45:36 Mother Depressive disorder mwasserman Not available 08/23 16:45:36 Father Thyroiditis mwasserman Not avai lable 08/23/2015 16:45:36 Father Heart disease mwasserman Not available 08/23 16:45:36 Father Hypertensive disorder mwasserman Not available 08/23 16:45:36 Father Hypercholest erolemia mwasserman Not available 08/23 16:45:36 Medical History Condition Response Other Y High Blood Pressure N Breast Cancer N Thyroid Problems N Kidney or Bladder Problems N GI Problems N Depression N Blood Clots N Lung Disease N Acne N Breast Problem N Eating Disorder N Anemia N Anesthesia Complications N Headaches/Migraines Y Anxiety Disorder N Diabetes N Ovarian Cancer N Muscle, Joint, or Bone Problems N Blood Transfusions N Seizures/Epilepsy N Polyps N Infertility N Acid Reflux (GERD) N Cancer N Abuse/Domestic Violence N Asthma N Endometriosis N High Cholesterol N Hepatitis N Liver Disease N Heart Disease N Pre-Eclampsia N Osteoporosis N Gynecological History Statement/Question Response Abnormal Pap Y On BCP's at Conception? N STIs/STDs N HPV Vaccine N Age at Menarche 13 Current Control Method Tubal Ligat ion Age at First Child 25 Sexually Active? Y Menses Monthly N Date of Last Pap Smear 08/17/2009 Sexual Problems? Y Desired Control Method None Obstetrics History GPAL:G 1 P 1 0 0 1 Type Value Full Term 1 Living 1 Total 1 Past Encounters Encounter ID Performer Location Encounter Start Date Encounter Closed Date Diagnosis/Indication Diagnosis SNOMED-CT Code Diagnosis ICD10 Code Diagnosis Note [id number] Nick Lynn Eugene ([employer]) [address] [place] [address] 08/23/2015 15:13:53 08/23/2015 16:55:59 Unilateral mastalgia 119919681 N64.4 Fibrocysti c disease of breast 69251686 N60.12 Health Concerns Section Related Observation LastModified by Organization Detai ls LastModified Time None Recorded Concern Status LastModified by Organization Details LastModified Time None Recorded Advance Directives Directive N: Payers Encounter Date Sequence Insurance Name Policy Number Policy Cohen Covered Member ID Cohen Member ID Guarantor Name 08/23/2015 1 [facility] PRIOR TO 02/14/2021 (MEDICAID REPLACEMENT - HMO) Violeta Olsen [id number] Violeta Olsen Notes Date Note Type Note Provider Name and Address Organization Details Recorded Time 08/23/2015 text/html Breast ProblemsReported bypatient.Location:lef t Onset/Timin-8 weeks Duration:constant Quality:asymptomatic; no bloody discharge; no brown discharge; no milky discharge; no yellow-clear discharge; no yellow-green discharge; non-tender; improving; no mass Context:prior mammogram normal; performs breast self-examination; no breast implants; no family history of breast cancer; no history of breast cancer; no radiation treatment; no chemotherapy; no cancer; no previous biopsies; no miscarriages; recent MRI normal; lymph node status negative Modifying Factors:no recent change in exercise habits; no recent changes in weight; no recent changes in diet; no recent changes in medication dosage of hormone replacement therapy Aggravating Factors:none Associated Symptoms:no fever; no chills; no breast reddening; no nipple discharge; no sore nipples; no nipple inversion; breasts feel normal; no breast swelling; no arm pain; no arm swelling; no chest pain; no malaise; no breast lump; no change in breast skinNotes:positive 5 relatives with breast pain. Made patient more concerned [facility] 00:52:17 OBGyn Episode Ob Episode Information Episode Created Date Number of Fetuses Patient Bloodtype Patient rh Status Prepregnancy Weight lbs Domestic Partner Domestic Partner Phone Father Name Headwaitress Status 08/23/19 16 1 CLOSED Fetus Data First Name Last Name Admitted to NICU Weight (g) Sex Living Outcome Pediatric Complications Fetus ID Race Codes Race Delivery Type 3855.53 2 M Full Term [id number] Julien Calculation Initial Julien Date Initial Exam Date Initial Exam Provider Initial Ultrasound Date Last Menstrual Period Date Ultra Sound Weeks Gestation 0 Eighteen To Twenty Week Julien Update Ultra Sound Date Fundal Height At Umbil Quickening Date Ultra Sound Latest Weeks Gestation Final Julien Confirmed By Final Julien Confirmed Date Final Julien Date Ultra Sound Latest Days Gestation 0 0 Menstrual History Last Menstrual Date Menses Monthly On Bcp Conception Prior Menses Frequency Hcg Plus Date Menarche Onset Age Delivery Information Delivery Date Delivery Type Labor Anesthesia Weeks Gestation Incision Type Labor Labor Length Hrs Delivered By Post Complications Tubal Sterilization Discharge Date Comments 1 [facility]- [facility] 38 15 Oscar Discharge Information Feeding Method Contraceptive Method Maternal HG B and HCT Levels
--- OUTSIDE RECORDS SUMMARY | 2024-10-24 16:42 | XMS_ITS | Encounter Summary ---
Author Organization [facility] Address [address] [place] [address] Care Team Providers Care Advertising Space Clerk Name Role Phone Neto Durant MD Unavailable Ramon Taylor MD Primary Care Provider Yefri Spence MD Unavailable [phone] Francesca Kendall Unavailable Unavailable Encounter Details Date Type Department Care Team (Late st Contact Info) Description 01/01/2021 Documentation [facility] [address] [place], [place] [id number] Swathi Daugherty, RN Social History Tobacco Use Types Packs/Day Years Used Date Smoking Tobacco: Heavy Smoker Cigarettes 0 0.5 Alcohol Use Standard Drinks/Week Comments Not Currently 0 (1 standard drink = 0.6 oz pur e alcohol) AUDIT-C Answer Date Recorded Q1: How often do you have a drink containing alc ohol? 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 Gender Identity Not on file Sexual Orientation Not on file documented as of this encounter Plan of Treatment Not on file documented as of this encounter Visit Diagnoses Not on filedocumented in this encounter Additional Health Concerns Infection Onset Date Last Indicated Resolved Time COVID: Suspected 07/30/2021 07/30/2021 07/31/2021 2:43 AM ASSISTANT PROFESSOR OF RADIOLOGY COVID: Suspected 03/16/2023 03/16/2023 03/16/2023 4:37 PM CDT documented as of this encounter Care Teams Advertising Space Clerk Relationship Specialty Start Date End Date Ramon Taylor MD [address] [facility] [address] [place] [address] PCP - General 01/01/21 Neto Durant MD [address] [place] [address] Consulting Physician Cardiovascular Disease 12/01/20 Yefri Spence MD [address] [facility] [address] [facility] [place] [address] Consulting Physician Transplant 06/17/24 Francesca Kendall Primary Salesforce Developer 06/17/24 documented as of this encounter
== END 2024-10-24 14:16 | disposition home or self-care (01) ==
PROVIDERS: PCP Internal Medicine; Visit Provider Internal Medicine
DX: R50.9 Fever, unspecified (principal)
CPT/HCPCS: 87502; 87634